=== PATIENT | female | born 1950 | race American Indian/Alaskan Native ===

== ENCOUNTER 2021-01-24 06:18 | Inpatient (IN) | payer MEDICARE ==
[2021-01-24] MEDS ORDERED: DEXTROSE 50% IN WATER (25GM) 50 ML SYRINGE IV ONE (06:53)
--- NOTE | 2021-01-24 07:05 | XRay Report ---
XR chest 1V ap INDICATION / CLINICAL INFORMATION: ams, hypoglycemia. COMPARISON: None available. FINDINGS: SUPPORT DEVICES: None. HEART /PULMONARY VASCULATURE: No significant abnormality. LUNGS / PLEURA: There are patchy bilateral interstitial airspace opacities. No sizable pleural effusi on. No pneumothorax. ADDITIONAL FINDINGS: No significant additional findings. IMPRESSION: 1. Patchy bilateral airspace opacities, suspicious for multifocal pneumonia. Signer Name: Burton Galloway MD Signed: 01/24/2021 7:00 AM Workstation Name: [email or web address]
[2021-01-24 07:24] LABS: Hematocrit 31.6 % (30.3-42.9); Hemoglobin 10.2 gm/dl (10.1-14.3); Mean Corpuscular HGB Conc 32 % (30-34); Mean Corpuscular Volume 92 fl (79-97); Platelet Count 269 K/mm3 (140-440); Red Blood Count 3.44 M/mm3 (3.65-5.03)
--- NOTE | 2021-01-24 07:30 | Emergency Department Report ---
ED Altered Mental Status HPI - General Stated Complaint: AMS Time Seen by Provider: 01/24/21 06:32 Source: patient, family, EMS Mode of arrival: Stretcher Limitations: Physical Limitation - History of Present Illness Initial Comments: 70-year-old female with history of end-stage renal disease on dialysis, hypertension, dementia, and diabetes presents to the hospital alteration mental status. Patient found to have had hypoglycemia with a blood glucose of 58 upon their arrival. They were unable to obtain IV access and transfer to the hospital. Patient presents altered. Stat IV access obtained upon patient arrival and IV dextrose administered. room air sat 94%. History of present illness clarified after discussing case with patient's daughter. She states that patient lives with her sister. Patient originally went to [facility] Friday, January 20. She was sent there by her dialysis center for increased weakness and decreased mental status. She was fo und to have high glucose and elevated blood pressure. Patient received inpatient dialysis that day. She is also told that she had a left-sided bruised fourth and fifth rib from fall. Patient subsequently discharged on Friday the . Family felt like she was still lethargic, had difficulty walking, with mild slurred speech and therefore took her to [place] upon discharge. When she got to [place] her mental status seemed to be better and therefore she was discharged to have dialysis on Friday. When she went to dialysis there on Friday they apparently had no room and she was told to come back today. Today patient was altered with hypoglycemia and therefore came here to the hospital pt is vaccinated for COVID as per daughter. Daughter also expresses that she feels that her mother requires fdc placement since patient sister cannot assist with her care since her physical and mental status have recently worsened - Related Data Home Medications Medication Instructions Recorded Confirmed Last Taken Gabapentin [Neurontin] 400 mg PO TID 12/29/17 01/02/18 01/01/18 Insulin Aspart (Nf) [NovoLOG 1 unit SUB-Q TID 12/29/17 01/02/18 01/01/18 Flexpen] Insulin Glargine,Hum.rec.anlog 8 units SQ QHS 12/29/17 01/02/18 01/01/18 [Lantus] Linagliptin [Tradjenta] 5 mg PO QDAY 12/29/17 01/02/18 01/01/18 Lisinopril [Zestril] 10 mg PO DAILY 12/29/17 01/02/18 01/02/18 Oxycodone HCl/Acetaminophen 1 each PO Q6HR PRN 12/29/17 01/02/18 01/01/18 [Percocet 10/325 mg] Pravastatin [Pravachol] 40 mg PO QHS 12/29/17 01/02/18 01/01/18 Sevelamer Carbonate [Renvela] 800 mg PO TID 12/29/17 12/29/17 Unknown amLODIPine [Norvasc] 10 mg PO DAILY 12/29/17 01/02/18 01/02/18 atenoloL [Tenormin] 25 mg PO DAILY 12/29/17 01/02/18 01/01/18 Allergies Allergy/AdvReac Type Severity Reaction Status Date / Time Iodinated Contrast Media Allergy Itching Verified 12/29/17 17:31 [Iodinated Contrast- Oral and IV Dye] latex Allergy Itching Verified 12/29/17 17:31 ED Review of Systems ROS: Stated complaint: AMS Other details as noted in HPI Comment: Unobtainable due to pts medical conditions ED Past Medical Hx - Past Medical History Hx Hypertension: Yes (X 5 YRS) Hx Diabetes: Yes Hx Arthritis: Yes Hx Tuberculosis: Yes (POSITIVE SKIN TEST,RECEIVED TX,NEG CXR-20YRS AGO) Hx HIV: No - Social History Smoking Status: Current Every Day Smoker - Medications Home Medications: Home Medications Medication Instructions Recorded Confirmed Last Taken Type Gabapentin [Neurontin] 400 mg PO TID 12/29/17 01/02/18 01/01/18 History Insulin Aspart (Nf) [NovoLOG 1 unit SUB-Q TID 12/29/17 01/02/18 01/01/18 History Flexpen] Insulin Glargine,Hum.rec.anlog 8 units SQ QHS 12/29/17 01/02/18 01/01/18 History [Lantus] Linagliptin [Tradjenta] 5 mg PO QDAY 12/29/17 01/02/18 01/01/18 History Lisinopril [Zestril] 10 mg PO DAILY 12/29/17 01/02/18 01/02/18 History Oxycodone HCl/Acetaminophen 1 each PO Q6HR PRN 12/29/17 01/02/18 01/01/18 History [Percocet 10/325 mg] Pravastatin [Pravachol] 40 mg PO QHS 12/29/17 01/02/18 01/01/18 History Sevelamer Carbonate [Renvela] 800 mg PO TID 12/29/17 12/29/17 Unknown History amLODIPine [Norvasc] 10 mg PO DAILY 12/29/17 01/02/18 01/02/18 History atenoloL [Tenormin] 25 mg PO DAILY 12/29/17 01/02/18 01/01/18 History ED Physical Exam - Other Other exam information: general: Unresponsive Head: Atraumatic Eyes: Pupils equal reactive to light Neck: Normal appearance, no midline tenderness Chest: Clear to auscultation bilaterally CV: Regular rate and rhythm, left upper arm dialysis access with positive thrill. Right upper arm dialysis without Abdomen: Soft, normal bowel sounds, nontender, nondistended, no rebound or guarding Extremity: Normal inspection Neuro: Unresponsive, mild grimace to painful stimuli, no spontaneous movement, does not follow command Psych: Appropriate behavior Skin: No rash ED Course Vital Signs 01/24/21 07:06 Temperature 97.6 F Pulse Rate 62 Respiratory 16 Rate Blood Pressure 130/56 [Right] O2 Sat by Pulse 96 Oximetry - Reevaluation(s) Reevaluation #1: 01/24/21 07:58 pt is currently aox3. Cannot recall the last time she had her insulin or the last time she had dialysis. I instructed nurse to feed patient given presenting symptoms of hypoglycemia - Consultations Consultation #1: 01/24/21 08:11 case d/w Dr Reid who will manage dialysis - Lab Data Result diagrams: 01/24/21 07:01 01/24/21 08:18 Lab Results 01/24/21 01/24/21 01/24/21 Range/Units 07:01 07:01 08:18 WBC 5.9 (4.5-11.0) K/mm3 RBC 3.44 L (3.65-5.03) M/mm3 Hgb 10.2 (10.1-14.3) gm/dl Hct 31.6 (30.3-42.9) % MCV 92 (79-97) fl MCH 30 (28-32) pg MCHC 32 (30-34) % RDW 20.7 H (13.2-15.2) % Plt Count 269 (140-440) K/mm3 D-Dimer (0-234) ng/mlDDU Sodium 133 L (137-145) mmol/L Potassium 4.4 (3.6-5.0) mmol/L Chloride 91.6 L (98-107) mmol/L Carbon Dioxide 20 L (22-30) mmol/L Anion Gap 26 mmol/L BUN 77 H (7-17) mg/dL Creatinine 12.5 H (0.6-1.2) mg/dL Estimated GFR 4 ml/min BUN/Creatinine Ratio 6 % Glucose 212 H (65-100) mg/dL Calcium 8.5 (8.4-10.2) mg/dL Magnesium 2.60 H (1.7-2.3) mg/dL Ferritin (10.0-200.0) ng/mL Total Bilirubin 0.40 (0.1-1.2) mg/dL AST 16 (5-40) units/L ALT 10 (7-56) units/L Alkaline Phosphatase 74 (35-129) units/L Lactate Dehydrogenase (91-180) units/L C-Reactive Protein (0.00-1.30) mg/dL Total Protein 7.2 (6.3-8.2) g/dL Albumin 3.4 L (3.9-5) g/dL Albumin/Globulin Ratio 0.9 % Procalcitonin 3.90 (<0.15) ng/mL 01/24/21 01/24/21 01/24/21 Range/Units 08:18 08:18 08:18 WBC (4.5-11.0) K/mm3 RBC (3.65-5.03) M/mm3 Hgb (10.1-14.3) gm/dl Hct (30.3-42.9) % MCV (79-97) fl MCH (28-32) pg MCHC (30-34) % RDW (13.2-15.2) % Plt Count (140-440) K/mm3 D-Dimer 742.42 H (0-234) ng/mlDDU Sodium (137-145) mmol/L Potassium (3.6-5.0) mmol/L Chloride (98-107) mmol/L Carbon Dioxide (22-30) mmol/L Anion Gap mmol/L BUN (7-17) mg/dL Creatinine (0.6-1.2) mg/dL Estimated GFR ml/min BUN/Creatinine Ratio % Glucose 169 H (65-100) mg/dL Calcium (8.4-10.2) mg/dL Magnesium (1.7-2.3) mg/dL Ferritin 1968.0 H (10.0-200.0) ng/mL Total Bilirubin (0.1-1.2) mg/dL AST (5-40) units/L ALT (7-56) units/L Alkaline Phosphatase (35-129) units/L Lactate Dehydrogenase 326 H (91-180) units/L C-Reactive Protein 17.80 H (0.00-1.30) mg/dL Total Protein (6.3-8.2) g/dL Albumin (3.9-5) g/dL Albumin/Globulin Ratio % Procalcitonin (<0.15) ng/mL - EKG Data -: EKG Interpreted by [facility] EKG shows normal: sinus rhythm, intervals (qtc 519), QRS complexes (qrsd 91), ST-T waves (no stemi) Rate: normal When compared to previous EKG there are: no significant change - Radiology Data Radiology results: report reviewed XR chest 1V ap INDICATION / CLINICAL INFORMATION: ams, hypoglycemia. COMPARISON: None available. FINDINGS: SUPPORT DEVICES: None. HEART /PULMONARY VASCULATURE: No significant abnormality. LUNGS / PLEURA: There are patchy bilateral interstitial airspace opacities. No sizable pleural effusion. No pneumothorax. ADDITIONAL FINDINGS: No significant additional findings. IMPRESSION: 1. Patchy bilateral airspace opacities, suspicious for multifocal pneumonia. - Medical Decision Making 70-year-old female presented with alteration mental status secondary to hypoglycemia. Improved mental status after 1 amp of D50. Patient was supposed to receive dialysis yesterday and which was rescheduled for today. Chest x-ray shows signs of multifocal pneumonia as per radiology read however, this may also represent pulmonary edema given delay in dialysis. Patient covered with hospital-acquired pneumonia antibiotics cefepime and vancomycin. Covid order set ordered. Patient fed food while in the ED. Case discussed with behavioral health rn on-call Dr. Olmos. Patient to be admitted to the hospitalist service for further treatment Critical Care Time: No Critical care attestation.: If time is entered above; I have spent that time in minutes in the direct care of this critically ill patient, excluding procedure time. ED Disposition Clinical Impression: Hypoglycemia, ESRD needing dialysis, Altered mental status, Pneumonia, Dementia, COVID Disposition: 09 ADMITTED INPATIENT Is pt being admited?: Yes Condition: Stable Time of Disposition: 08:29 (hospitalist)
[2021-01-24] MEDS ORDERED: VANCOMYCIN 1,250 MG in SODIUM CHLORIDE 0.9% 500 ML 500 ML IV ONE (07:31)
[2021-01-24] MEDS ORDERED: CEFEPIME/NS 2 GM/100 ML 2 GM/100 ML BAG IV ONE (07:31)
[2021-01-24 07:40] LABS: Albumin 3.4 g/dL (3.9-5); Calcium 8.5 mg/dL (8.4-10.2)
[2021-01-24 07:44] LABS: Red Cell Distribution Width 20.7 % (13.2-15.2)
[2021-01-24] MEDS ORDERED: VANCOMYCIN PHARMACY TO DOSE IV SCH (08:00)
[2021-01-24 09:00] LABS: C-Reactive Protein 17.8 mg/dL (0.00-1.30)
[2021-01-24] MEDS ORDERED: VANCOMYCIN 1,250 MG in SODIUM CHLORIDE 0.9% 250ML 250 ML IV SCH (09:30)
--- NOTE | 2021-01-24 10:08 | Electrocardiograph Report ---
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
[2021-01-24] MEDS ORDERED: ONDANSETRON 4 MG/2 ML INJ IV PRN (11:47)
[2021-01-24] MEDS ORDERED: MORPHINE 4 MG/1 ML INJ IV PRN (11:47)
--- NOTE | 2021-01-24 14:25 | Consultation ---
History of Present Illness - Reason for Consult Consult date: 01/24/21 end stage renal disease - History of Present Illness 70-year-old female with history of end-stage renal disease on dialysis, hypertension, dementia, and diabetes presents to the hospital alteration mental status. Patient found to have had hypoglycemia with a blood glucose of 58 upon their arrival. she was found to have possible pneumonia and was staretd on IV abx. renal consult was requested for HD management Medications and Allergies Allergies Allergy/AdvReac Type Severity Reaction Status Date / Time Iodinated Contrast Media Allergy Itching Verified 12/29/17 17:31 [Iodinated Contrast- Oral and IV Dye] latex Allergy Itching Verified 12/29/17 17:31 Home Medications Medication Instructions Recorded Confirmed Last Taken Type Gabapentin [Neurontin] 400 mg PO TID 12/29/17 01/02/18 01/01/18 History Insulin Aspart (Nf) [NovoLOG 1 unit SUB-Q TID 12/29/17 01/02/18 01/01/18 History Flexpen] Insulin Glargine,Hum.rec.anlog 8 units SQ QHS 12/29/17 01/02/18 01/01/18 History [Lantus] Linagliptin [Tradjenta] 5 mg PO QDAY 12/29/17 01/02/18 01/01/18 History Lisinopril [Zestril] 10 mg PO DAILY 12/29/17 01/02/18 01/02/18 History Oxycodone HCl/Acetaminophen 1 each PO Q6HR PRN 12/29/17 01/02/18 01/01/18 History [Percocet 10/325 mg] Pravastatin [Pravachol] 40 mg PO QHS 12/29/17 01/02/18 01/01/18 History Sevelamer Carbonate [Renvela] 800 mg PO TID 12/29/17 12/29/17 Unknown History amLODIPine [Norvasc] 10 mg PO DAILY 12/29/17 01/02/18 01/02/18 History atenoloL [Tenormin] 25 mg PO DAILY 12/29/17 01/02/18 01/01/18 History Active Meds: Active Medications Acetaminophen (Acetaminophen 325 Mg Tab) 650 mg PO Q4H PRN PRN Reason: Pain MILD(1-3)/Fever >100.5/MARTINEZ Hydrocodone Bitart/Acetaminophen (Hydrocodone/Acetaminophen 5-325 Mg Tab) 2 each PO Q6H PRN PRN Reason: Pain, Moderate (4-6) Heparin Sodium (Porcine) (Heparin 5,000 Unit/1 Ml Vial) 5,000 unit SUB-Q Q8HR JOSH Morphine Sulfate (Morphine 4 Mg/1 Ml Inj) 4 mg IV Q4H PRN PRN Reason: Pain , Severe (7-10) Ondansetron HCl (Ondansetron 4 Mg/2 Ml Inj) 4 mg IV Q8H PRN PRN Reason: Nausea And Vomiting Sodium Chloride (Sodium Chloride 0.9% 10 Ml Flush Syringe) 10 ml IV BID JOSH Sodium Chloride (Sodium Chloride 0.9% 10 Ml Flush Syringe) 10 ml IV PRN PRN PRN Reason: LINE FLUSH Exam - Vital Signs Vital signs: Vital Signs Temp Pulse Resp BP Pulse Ox 97.6 F 62 16 130/56 96 01/24/21 07:06 01/24/21 07:06 01/24/21 07:06 01/24/21 07:06 01/24/21 07:06 Results - Lab Results 01/24/21 07:01 01/24/21 08:18 Most recent lab results Calcium 8.5 mg/dL (8.4-10.2) 01/24/21 07:01 Magnesium 2.60 mg/dL (1.7-2.3) H 01/24/21 07:01 Assessment and Plan Altered mental status Pneumonia ESRD on HD HTN Pt was consented for HD HD today for clearance and volume removal likely will neeed HD again tomorrow will assess dialysis needs daily Strict I&O daily weight renally dose meds
--- NOTE | 2021-01-24 15:17 | History and Physical Report ---
History of Present Illness Date of examination: 01/24/21 Date of admission: 01/24/21 08:30 Chief complaint: Altered mental status History of present illness: The patient is a 70-year-old female with past medical history of ESRD on hemodialysis (TTS), dementia, insulin-dependent diabetes mellitus (type II), and hyperlipidemia who presented to the hospital with altered mentation. The patient admitted to her daughter dropping her off at the ED but could not provide much additional information regarding her symptoms. Chart review revealed that the patient was hypoglycemic with a blood glucose of 58 upon arrival. The patient could not provide additional information regarding possible shortness of breath, coughing, nausea, vomiting, abdominal pain, urinary symptoms, confusion, or weakness. EKG revealed sinus rhythm. Chest x- ray was obtained with possible bilateral opacities concerning for multifocal pneumonia. The patient received 1 dose of cefepime and vancomycin in the ED. Attempts will be made to reach out to the patient's family for additional ba ckground information. Past History Past Medical History: diabetes, dialysis, ESRD, hypertension, hyperlipidemia Past Surgical History: total knee replacement (Left knee) Social history: lives with family (Lives with daughter), full code Family history: no significant family history Medications and Allergies Allergies Allergy/AdvReac Type Severity Reaction Status Date / Time Iodinated Contrast Media Allergy Itching Verified 12/29/17 17:31 [Iodinated Contrast- Oral and IV Dye] latex Allergy Itching Verified 12/29/17 17:31 Home Medications Medication Instructions Recorded Confirmed Last Taken Type Gabapentin [Neurontin] 400 mg PO TID 12/29/17 01/02/18 01/01/18 History Insulin Aspart (Nf) [NovoLOG 1 unit SUB-Q TID 12/29/17 01/02/18 01/01/18 History Flexpen] Insulin Glargine,Hum.rec.anlog 8 units SQ QHS 12/29/17 01/02/18 01/01/18 History [Lantus] Linagliptin [Tradjenta] 5 mg PO QDAY 12/29/17 01/02/18 01/01/18 History Lisinopril [Zestril] 10 mg PO DAILY 12/29/17 01/02/18 01/02/18 History Oxycodone HCl/Acetaminophen 1 each PO Q6HR PRN 12/29/17 01/02/18 01/01/18 History [Percocet 10/325 mg] Pravastatin [Pravachol] 40 mg PO QHS 12/29/17 01/02/18 01/01/18 History Sevelamer Carbonate [Renvela] 800 mg PO TID 12/29/17 12/29/17 Unknown History amLODIPine [Norvasc] 10 mg PO DAILY 12/29/17 01/02/18 01/02/18 History atenoloL [Tenormin] 25 mg PO DAILY 12/29/17 01/02/18 01/01/18 History Active Meds: Active Medications Acetaminophen (Acetaminophen 325 Mg Tab) 650 mg PO Q4H PRN PRN Reason: Pain MILD(1-3)/Fever >100.5/MARTINEZ Hydrocodone Bitart/Acetaminophen (Hydrocodone/Acetaminophen 5-325 Mg Tab) 2 each PO Q6H PRN PRN Reason: Pain, Moderate (4-6) Heparin Sodium (Porcine) (Heparin 5,000 Unit/1 Ml Vial) 5,000 unit SUB-Q Q8HR JOSH Morphine Sulfate (Morphine 4 Mg/1 Ml Inj) 4 mg IV Q4H PRN PRN Reason: Pain , Severe (7-10) Ondansetron HCl (Ondansetron 4 Mg/2 Ml Inj) 4 mg IV Q8H PRN PRN Reason: Nausea And Vomiting Sodium Chloride (Sodium Chloride 0.9% 10 Ml Flush Syringe) 10 ml IV BID JOSH Sodium Chloride (Sodium Chloride 0.9% 10 Ml Flush Syringe) 10 ml IV PRN PRN PRN Reason: LINE FLUSH Review of Systems ROS unobtainable: due to mental status (Could not obtain clear review of systems due to mental status) Exam - Constitutional Vitals: Temp Pulse Resp BP Pulse Ox 97.6 F 62 20 130/56 95 01/24/21 07:06 01/24/21 07:06 01/24/21 14:36 01/24/21 07:06 01/24/21 14:36 General appearance: Present: no acute distress, well-nourished - EENT Eyes: Present: PERRL, EOM intact ENT: hearing intact, clear oral mucosa, dentition normal - Neck Neck: Present: supple, normal ROM - Respiratory Respiratory effort: normal Respiratory: negative: CTA, diminished, rales, rhonchi, wheezing, other - Cardiovascular Rhythm: regular Heart Sounds: Present: S1 & S2 Details: Mild tenderness of the lateral left chest - Extremities Extremities: no ischemia, pulses intact, pulses symmetrical, No edema, normal temperature, normal color Peripheral Pulses: within normal limits - Abdominal General gastrointestinal: Present: soft, non-tender, non-distended, normal bowel sounds - Rectal Rectal Exam: deferred - Integumentary Integumentary: Present: clear, warm, dry - Musculoskeletal Musculoskeletal: strength equal bilaterally - Psychiatric Psychiatric: other (Unable to obtain due to clinical status) - Neurologic Neurologic: other (Unable to obtain due to clinical) - Allied Health Allied health notes reviewed: nursing HEART Score - HEART Score History: Slightly suspicious EKG: Normal Age: > 65 Risk factors: 1-2 risk factors Troponin: 1-3x normal limit HEART Score: 4 - Critical Actions Critical Actions: 4-6 pts:12-16.6% risk of adverse cardiac event. Should be admitted Results - Labs CBC & Chem 7: 01/24/21 07:01 01/24/21 08:18 Labs: Laboratory Last Values WBC 5.9 K/mm3 (4.5-11.0) 01/24/21 07:01 RBC 3.44 M/mm3 (3.65-5.03) L 01/24/21 07:01 Hgb 10.2 gm/dl (10.1-14.3) 01/24/21 07:01 Hct 31.6 % (30.3-42.9) 01/24/21 07:01 MCV 92 fl (79-97) 01/24/21 07:01 MCH 30 pg (28-32) 01/24/21 07:01 MCHC 32 % (30-34) 01/24/21 07:01 RDW 20.7 % (13.2-15.2) H 01/24/21 07:01 Plt Count 269 K/mm3 (140-440) 01/24/21 07:01 D-Dimer 742.42 ng/mlDDU (0-234) H 01/24/21 08:18 Sodium 133 mmol/L (137-145) L 01/24/21 07:01 Potassium 4.4 mmol/L (3.6-5.0) 01/24/21 07:01 Chloride 91.6 mmol/L (98-107) L 01/24/21 07:01 Carbon Dioxide 20 mmol/L (22-30) L 01/24/21 07:01 Anion Gap 26 mmol/L 01/24/21 07:01 BUN 77 mg/dL (7-17) H 01/24/21 07:01 Creatinine 12.5 mg/dL (0.6-1.2) H 01/24/21 07:01 Estimated GFR 4 ml/min 01/24/21 07:01 BUN/Creatinine Ratio 6 % 01/24/21 07:01 Glucose 169 mg/dL (65-100) H 01/24/21 08:18 Calcium 8.5 mg/dL (8.4-10.2) 01/24/21 07:01 Magnesium 2.60 mg/dL (1.7-2.3) H 01/24/21 07:01 Ferritin 1968.0 ng/mL (10.0-200.0) H 01/24/21 08:18 Total Bilirubin 0.40 mg/dL (0.1-1.2) 01/24/21 07:01 AST 16 units/L (5-40) 01/24/21 07:01 ALT 10 units/L (7-56) 01/24/21 07:01 Alkaline Phosphatase 74 units/L (35-129) 01/24/21 07:01 Lactate Dehydrogenase 326 units/L (91-180) H 01/24/21 08:18 C-Reactive Protein 17.80 mg/dL (0.00-1.30) H 01/24/21 08:18 Total Protein 7.2 g/dL (6.3-8.2) 01/24/21 07:01 Albumin 3.4 g/dL (3.9-5) L 01/24/21 07:01 Albumin/Globulin Ratio 0.9 % 01/24/21 07:01 Procalcitonin 3.90 ng/mL (<0.15) 01/24/21 08:18 Coronavirus (PCR) Positive (Negative) A 01/24/21 Unknown Microbiology: Microbiology 01/24/21 08:18 Peripheral/Venous Blood Culture - Preliminary Culture in Progress 01/24/21 08:18 Peripheral/Venous Blood Culture - Preliminary Culture in Progress - Imaging and Cardiology EKG: report reviewed, image reviewed Chest x-ray: report reviewed, image reviewed Assessment and Plan Assessment and plan: #Presumed metabolic encephalopathy -Etiology unknown however differential includes infection, hypoglycemia, worsening dementia, electrolyte derangements, etc. -Blood cultures and urinalysis ordered for evaluation of infection; status post cefepime and vancomycin in ED -We will continue antibiotics while pending infectious work-up -We will contact family in order to gather more information about patient's baseline #COVID-19 pneumonia -Chest x-ray concerning for multifocal pneumonia -Covid PCR positive on 01/24/2021 -Unaware of patient's vaccination status -Initiating isolation protocol per COVID-19 results -D-dimer 742, ferritin 1968, LDH 326, CRP 17; will trend COVID-19 inflammatory markers every 2 to 3 days -Consulting infectious disease; appreciate recs #ESRD -Receives hemodialysis on TTS schedule via left upper extremity fistula -Patient admits to missing last 2 sessions but could not provide clear in formation as to why. She hinted at whether being the issue -Nephrology consulted in ED; appreciate recs -Patient will likely obtain hemodialysis today -We will continue to monitor #Insulin-dependent type 2 diabetes mellitus -Restarted home regimen -Initiating low sliding scale insulin regimen -We will continue to monitor #Hypoglycemia -Unsure of etiology (over administration of insulin versus lack of p.o. intake) -Corrected in the ED -We will continue to monitor #DVT prophylaxis -Initiate subcutaneous heparin 5000 units every 8 hours VTE prophylaxis?: Chemical Plan of care discussed with patient/family: Yes - Patient Problems (1) Acute metabolic encephalopathy Current Visit: Yes Status: Acute (2) ESRD needing dialysis Current Visit: Yes Status: Chronic (3) Hypoglycemia Current Visit: Yes Status: Acute (4) Dementia Current Visit: Yes Status: Chronic Qualifiers: Dementia type: unspecified type Dementia behavioral disturbance: without behavioral disturbance Qualified Code(s): F03.90 - Unspecified dementia without behavioral disturbance
[2021-01-24] MEDS: HEPARIN 5,000 UNIT/1 ML VIAL SUB-Q SCH ×2 (15:51→22:37)
[2021-01-24 16:27] LABS: Hepatitis C Virus Antibody Non-Reactive (NonReactive)
[2021-01-24 16:40] LABS: Hepatitis B Surface Antigen Nonreactive (Negative)
[2021-01-24] MEDS: predniSONE 20 MG TAB PO SCH (17:35)
[2021-01-24 17:41] LABS: Total Cells Counted 100
[2021-01-24 17:44] LABS: Band Neutrophils # (Manual) 0.1 K/mm3
[2021-01-24] MEDS: hydrALAZINE 20 MG/1 ML INJ IV PRN (22:30)
[2021-01-25] MEDS: HEPARIN 5,000 UNIT/1 ML VIAL SUB-Q SCH ×3 (08:07→23:05)
[2021-01-25 08:11] LABS: Hematocrit 31.7 % (30.3-42.9); Hemoglobin 10.4 gm/dl (10.1-14.3); Mean Corpuscular HGB Conc 33 % (30-34); Mean Corpuscular Volume 91 fl (79-97); Platelet Count 281 K/mm3 (140-440); Red Blood Count 3.51 M/mm3 (3.65-5.03)
[2021-01-25 08:17] LABS: Red Cell Distribution Width 20.3 % (13.2-15.2)
[2021-01-25] MEDS: predniSONE 20 MG TAB PO SCH (10:31)
--- NOTE | 2021-01-25 11:48 | Progress Note ---
Assessment and Plan Altered mental status Pneumonia ESRD on HD HTN Pt was consented for HD HD again today for clearance and volume removal likely will neeed HD again tomorrow will assess dialysis needs daily Strict I&O daily weight renally dose meds Subjective Date of service: 01/25/21 Principal diagnosis: ESRD on HD Interval history: tolerated HD yesterday Objective - Vital Signs Vital signs: Vital Signs - 12hr 01/25/21 03:53 Temperature 98.1 F Pulse Rate 71 Respiratory 18 Rate Blood Pressure 164/63 O2 Sat by Pulse 98 Oximetry - Lab 01/25/21 06:16 01/25/21 06:16 Most recent lab results Calcium 9.0 mg/dL (8.4-10.2) 01/25/21 06:16 Phosphorus 8.60 mg/dL (2.5-4.5) H 01/25/21 06:16 Magnesium 2.20 mg/dL (1.7-2.3) 01/25/21 06:16 Medications & Allergies - Medications Allergies/Adverse Reactions: Allergies Iodinated Contrast Media [Iodinated Contrast- Oral and IV Dye] Allergy (Verified 12/29/17 17:31) Itching latex Allergy (Verified 12/29/17 17:31) Itching Home Medications: Home Medications Medication Instructions Recorded Confirmed Last Taken Type Gabapentin [Neurontin] 400 mg PO TID 12/29/17 01/02/18 01/01/18 History Insulin Aspart (Nf) [NovoLOG 1 unit SUB-Q TID 12/29/17 01/02/18 01/01/18 History Flexpen] Insulin Glargine,Hum.rec.anlog 8 units SQ QHS 12/29/17 01/02/18 01/01/18 History [Lantus] Linagliptin [Tradjenta] 5 mg PO QDAY 12/29/17 01/02/18 01/01/18 History Lisinopril [Zestril] 10 mg PO DAILY 12/29/17 01/02/18 01/02/18 History Oxycodone HCl/Acetaminophen 1 each PO Q6HR PRN 12/29/17 01/02/18 01/01/18 History [Percocet 10/325 mg] Pravastatin [Pravachol] 40 mg PO QHS 12/29/17 01/02/18 01/01/18 History Sevelamer Carbonate [Renvela] 800 mg PO TID 12/29/17 12/29/17 Unknown History amLODIPine [Norvasc] 10 mg PO DAILY 12/29/17 01/02/18 01/02/18 History atenoloL [Tenormin] 25 mg PO DAILY 12/29/17 01/02/18 01/01/18 History Active Medications: Generic Name Dose Route Start Last Admin Trade Name Freq PRN Reason Stop Dose Admin Acetaminophen 650 mg 01/24/21 11:47 Acetaminophen 325 Mg Tab PO Q4H PRN Pain MILD(1-3)/Fever >100.5/MARTINEZ Hydrocodone Bitart/Acetaminophen 2 each 01/24/21 11:47 Hydrocodone/Acetaminophen 5-325 Mg Tab PO Q6H PRN Pain, Moderate (4-6) Heparin Sodium (Porcine) 5,000 unit 01/24/21 14:00 01/25/21 08:07 Heparin 5,000 Unit/1 Ml Vial SUB-Q 5,000 unit Q8HR JOSH Administration Hydralazine HCl 10 mg 01/24/21 22:30 01/24/21 22:30 Hydralazine 20 Mg/1 Ml Inj IV 10 mg Q6HR PRN Administration elevated blood pressure Morphine Sulfate 4 mg 01/24/21 11:47 Morphine 4 Mg/1 Ml Inj IV Q4H PRN Pain , Severe (7-10) Ondansetron HCl 4 mg 01/24/21 11:47 Ondansetron 4 Mg/2 Ml Inj IV Q8H PRN Nausea And Vomiting Prednisone 40 mg 01/24/21 16:30 01/25/21 10:31 Prednisone 20 Mg Tab PO 02/02/21 10:30 40 mg QDAY JOSH Administration Sodium Chloride 10 ml 01/24/21 22:00 01/25/21 10:31 Sodium Chloride 0.9% 10 Ml Flush Syringe IV 10 ml BID JOSH Administration Sodium Chloride 10 ml 01/24/21 11:47 Sodium Chloride 0.9% 10 Ml Flush Syringe IV PRN PRN LINE FLUSH
[2021-01-25 13:09] LABS: Total Cells Counted 100
[2021-01-25 13:10] LABS: Anisocytosis 1+; Band Neutrophils # (Manual) 0.3 K/mm3; Platelet Estimate Consistent w Auto
--- NOTE | 2021-01-25 13:52 | Consultation ---
History of Present Illness - Reason for Consult Consult date: 01/25/21 COVID-19 Requesting physician: JEREMIAH CORTES - History of Present Illness The patient is a 70-year-old female with ESRD on HD, dementia, insulin-dependent diabetes, hyperlipidemia admitted with altered mental status. Chest x-ray revealed bilateral opacities concerning for multifocal pneumonia. Was started on empiric antibiotics. COVID-19 PCR is positive, hence infectious diseases was consulted. Labs revealed normal WBC, D-dimer 742, creatinine 7.8, ferritin 1968, CRP 17.8, procalcitonin 3.9 Review of Systems: reviewed in the chart, unable to obtain, minimize risk of transmission Past History Past Medical History: diabetes, dialysis, ESRD, hypertension, hyperlipidemia Past Surgical History: total knee replacement (Left knee) Social history: lives with family (Lives with daughter), full code Family history: no significant family history Medications and Allergies Allergies Allergy/AdvReac Type Severity Reaction Status Date / Time Iodinated Contrast Media Allergy Itching Verified 12/29/17 17:31 [Iodinated Contrast- Oral and IV Dye] latex Allergy Itching Verified 12/29/17 17:31 Home Medications Medication Instructions Recorded Confirmed Last Taken Type Gabapentin [Neurontin] 400 mg PO TID 12/29/17 01/25/21 01/01/18 History Insulin Aspart (Nf) [NovoLOG 1 unit SUB-Q TID 12/29/17 01/25/21 01/01/18 History Flexpen] Insulin Glargine,Hum.rec.anlog 8 units SQ QHS 12/29/17 01/25/21 01/01/18 History [Lantus] Linagliptin [Tradjenta] 5 mg PO QDAY 12/29/17 01/25/21 01/01/18 History Lisinopril [Zestril] 10 mg PO DAILY 12/29/17 01/25/21 01/02/18 History Oxycodone HCl/Acetaminophen 1 each PO Q6HR PRN 12/29/17 01/25/21 01/01/18 History [Percocet 10/325 mg] Pravastatin [Pravachol] 40 mg PO QHS 12/29/17 01/25/21 01/01/18 History Sevelamer Carbonate [Renvela] 800 mg PO TID 12/29/17 01/25/21 Unknown History amLODIPine [Norvasc] 10 mg PO DAILY 12/29/17 01/25/21 01/02/18 History atenoloL [Tenormin] 25 mg PO DAILY 12/29/17 01/25/21 01/01/18 History Active Meds: Active Medications Acetaminophen (Acetaminophen 325 Mg Tab) 650 mg PO Q4H PRN PRN Reason: Pain MILD(1-3)/Fever >100.5/MARTINEZ Hydrocodone Bitart/Acetaminophen (Hydrocodone/Acetaminophen 5-325 Mg Tab) 2 each PO Q6H PRN PRN Reason: Pain, Moderate (4-6) Heparin Sodium (Porcine) (Heparin 5,000 Unit/1 Ml Vial) 5,000 unit SUB-Q Q8HR [facility] Last Admin: 01/25/21 08:07 Dose: 5,000 unit Documented by: Hydralazine HCl (Hydralazine 20 Mg/1 Ml Inj) 10 mg IV Q6HR PRN PRN Reason: elevated blood pressure Last Admin: 01/24/21 22:30 Dose: 10 mg Documented by: Insulin Human Lispro (Insulin Lispro 100 Unit/Ml) 0 unit SUB-Q [facility]; Protocol Morphine Sulfate (Morphine 4 Mg/1 Ml Inj) 4 mg IV Q4H PRN PRN Reason: Pain , Severe (7-10) Ondansetron HCl (Ondansetron 4 Mg/2 Ml Inj) 4 mg IV Q8H PRN PRN Reason: Nausea And Vomiting Prednisone (Prednisone 20 Mg Tab) 40 mg PO QDAY [facility] Stop: 02/02/21 10:30 Last Admin: 01/25/21 10:31 Dose: 40 mg Documented by: Sodium Chloride (Sodium Chloride 0.9% 10 Ml Flush Syringe) 10 ml IV BID [facility] Last Admin: 01/25/21 10:31 Dose: 10 ml Documented by: Sodium Chloride (Sodium Chloride 0.9% 10 Ml Flush Syringe) 10 ml IV PRN PRN PRN Reason: LINE FLUSH Physical Examination - Physical Exam Narrative exam: Physical Exam (reviewed in chart to minimize risk of transmission) Constitutional: deferred Head, Ears, Nose: deferred Eyes: deferred Neck: deferred Oral: deferred Cardiovascular: deferred Respiratory: deferred GI: deferred Musculoskeletal: deferred Skin: deferred Hem/Lymphatic: deferred Psych: deferred Neurological: deferred - Constitutional Vitals: Vital Signs Temp Pulse Resp BP Pulse Ox 98.1 F 70 18 164/66 100 01/25/21 03:53 01/25/21 12:15 01/25/21 03:53 01/25/21 13:10 01/25/21 12:15 Temperature -Last 24 Hours Temperature 98.1 F Temperature 98.5 F Temperature 98.7 F Temperature 98.7 F Temperature 97.6 F Results - Labs CBC & Chem 7: 01/25/21 06:16 01/25/21 06:16 Labs: Abnormal lab results 01/24/21 01/24/21 01/24/21 Range/Units 07:01 22:35 Unknown RBC (3.65-5.03) M/mm3 RDW (13.2-15.2) % Seg Neuts % (Manual) 82.0 H (40.0-70.0) % Lymphocytes % (Manual) 9.0 L (13.4-35.0) % Lymphocytes # (Manual) 0.5 L (1.2-5.4) K/mm3 Chloride (98-107) mmol/L BUN (7-17) mg/dL Creatinine (0.6-1.2) mg/dL Glucose (65-100) mg/dL POC Glucose 193 H (70-105) mg/dL Phosphorus (2.5-4.5) mg/dL Coronavirus (PCR) Positive A (Negative) 01/25/21 01/25/21 01/25/21 Range/Units 06:16 06:16 12:13 RBC 3.51 L (3.65-5.03) M/mm3 RDW 20.3 H (13.2-15.2) % Seg Neuts % (Manual) 83.0 H (40.0-70.0) % Lymphocytes % (Manual) 8.0 L (13.4-35.0) % Lymphocytes # (Manual) 0.4 L (1.2-5.4) K/mm3 Chloride 91.4 L (98-107) mmol/L BUN 39 H (7-17) mg/dL Creatinine 7.8 H (0.6-1.2) mg/dL Glucose 115 H (65-100) mg/dL POC Glucose 209 H (70-105) mg/dL Phosphorus 8.60 H (2.5-4.5) mg/dL Coronavirus (PCR) (Negative) - Imaging and Cardiology Chest x-ray: report reviewed, image reviewed (multifocal pneumonia) Assessment and Plan Cultures: SARS CoV2 PCR: Positive 01/24/2021 blood culture: No growth A/P: 70-year-old female with ESRD on HD, dementia, insulin-dependent diabetes, hyperlipidemia admitted with altered mental status: #Bilateral pneumonia: Secondary to COVID-19. Labs revealed normal WBC, D-dimer 742, creatinine 7.8, ferritin 1968, CRP 17.8, procalcitonin 3.9. Procalcitonin elevation probably from renal failure #Acute hypoxic respiratory failure: on nasal cannula. #ESRD on HD: Renally adjust antibiotics. #Acute encephalopathy: Possibly metabolic Recs: Continue steroids, on prednisone Not a candidate for remdesivir due to renal failure prophylactic anticoagulation based on d-dimer per hospital protocol trend ferritin, d-dimer, CRP every 2-3 days Bill Jiménez MD, FACP [facility] ([facility] O: [phone] F: [phone]
--- NOTE | 2021-01-25 14:34 | Progress Note ---
Assessment and Plan Assessment and plan: #Presumed metabolic encephalopathy -Etiology unknown however differential includes infection, hypoglycemia, worsening dementia, electrolyte derangements, etc. -Blood cultures and urinalysis ordered for evaluation of infection; status post cefepime and vancomycin in ED -We will contact family in order to gather more information about patient's baseline #COVID-19 pneumonia #Acute hypoxic respiratory failure -Currently on 4 to 5 L nasal cannula; wean oxygen as tolerated -Covid PCR positive on 01/24/2021 -Unaware of patient's vaccination status -Initiating isolation protocol per COVID-19 results -D-dimer 742, ferritin 1968, LDH 326, CRP 17; will trend COVID-19 inflammatory markers every 2 to 3 days -Consulting infectious disease; appreciate recs -Continue IV dexamethasone 40 mg daily for total of 10 days; not a candidate for remdesivir given renal function #ESRD -Receives hemodialysis on TTS schedule via left upper extremity fistula -Patient admits to missing last 2 sessions but could not provide clear information as to why. She hinted at whether being the issue -Nephrology consulted in ED; appreciate recs -Status post hemodialysis on 01/24/2021; possible hemodialysis today -We will continue to monitor #Insulin-dependent type 2 diabetes mellitus -Restarted home regimen -Continue low sliding scale insulin regimen -We will continue to monitor #Hypoglycemia -Unsure of etiology (over administration of insulin versus lack of p.o. intake) -Corrected in the ED -We will continue to monitor #DVT prophylaxis -Initiate subcutaneous heparin 5000 units every 8 hours Disposition Plan: Continue medical management - Patient Problems (1) Acute metabolic encephalopathy Current Visit: Yes Status: Acute (2) ESRD needing dialysis Current Visit: Yes Status: Chronic (3) Hypoglycemia Current Visit: Yes Status: Acute (4) Dementia Current Visit: Yes Status: Chronic Qualifiers: Dementia type: unspecified type Dementia behavioral disturbance: without behavioral disturbance Qualified Code(s): F03.90 - Unspecified dementia without behavioral disturbance History Interval history: No acute events overnight Hospitalist Physical - Constitutional Vitals: Temp Pulse Resp BP Pulse Ox 98.1 F 70 18 164/66 100 01/25/21 03:53 01/25/21 12:15 01/25/21 03:53 01/25/21 13:10 01/25/21 12:15 General appearance: Present: no acute distress, well-nourished - EENT Eyes: Present: PERRL, EOM intact ENT: hearing intact, clear oral mucosa, dentition normal - Neck Neck: Present: supple, normal ROM - Respiratory Respiratory effort: normal Respiratory: bilateral: rhonchi - Cardiovascular Rhythm: regular Heart Sounds: Present: S1 & S2 - Extremities Extremities: no ischemia, pulses intact, pulses symmetrical, No edema, normal temperature, normal color Extremity abnormal: other (AV fistula in left upper extremity with palpable thrill) Peripheral Pulses: within normal limits - Abdominal General gastrointestinal: soft, non-tender, non-distended, normal bowel sounds - Integumentary Integumentary: Present: clear, warm, dry - Psychiatric Psychiatric: cooperative - Neurologic Neurologic: other (Altered mentation) - Allied Health Allied health notes reviewed: nursing HEART Score - HEART Score EKG: Normal Age: > 65 Risk factors: 1-2 risk factors Troponin: 1-3x normal limit - Critical Actions Critical Actions: 4-6 pts:12-16.6% risk of adverse cardiac event. Should be admitted Results - Labs CBC & Chem 7: 01/25/21 06:16 01/25/21 06:16 Labs: Laboratory Last Values WBC 5.5 K/mm3 (4.5-11.0) 01/25/21 06:16 RBC 3.51 M/mm3 (3.65-5.03) L 01/25/21 06:16 Hgb 10.4 gm/dl (10.1-14.3) 01/25/21 06:16 Hct 31.7 % (30.3-42.9) 01/25/21 06:16 MCV 91 fl (79-97) 01/25/21 06:16 MCH 30 pg (28-32) 01/25/21 06:16 MCHC 33 % (30-34) 01/25/21 06:16 RDW 20.3 % (13.2-15.2) H 01/25/21 06:16 Plt Count 281 K/mm3 (140-440) 01/25/21 06:16 Add Manual Diff Complete 01/25/21 06:16 Total Counted 100 01/25/21 06:16 Seg Neuts % (Manual) 83.0 % (40.0-70.0) H 01/25/21 06:16 Band Neutrophils % 5.0 % 01/25/21 06:16 Lymphocytes % (Manual) 8.0 % (13.4-35.0) L 01/25/21 06:16 Reactive Lymphs % (Man) 3.0 % 01/25/21 06:16 Monocytes % (Manual) 1.0 % (0.0-7.3) 01/25/21 06:16 Metamyelocytes % 1.0 % 01/24/21 07:01 Nucleated RBC % Not Reportable 01/25/21 06:16 Seg Neutrophils # Man 4.6 K/mm3 (1.8-7.7) 01/25/21 06:16 Band Neutrophils # 0.3 K/mm3 01/25/21 06:16 Lymphocytes # (Manual) 0.4 K/mm3 (1.2-5.4) L 01/25/21 06:16 Abs React Lymphs (Man) 0.2 K/mm3 01/25/21 06:16 Monocytes # (Manual) 0.1 K/mm3 (0.0-0.8) 01/25/21 06:16 Eosinophils # (Manual) 0.0 K/mm3 (0.0-0.4) 01/25/21 06:16 Basophils # (Manual) 0.0 K/mm3 (0.0-0.1) 01/25/21 06:16 Metamyelocytes # 0.0 K/mm3 01/25/21 06:16 Myelocytes # 0.0 K/mm3 01/25/21 06:16 Promyelocytes # 0.0 K/mm3 01/25/21 06:16 Blast Cells # 0.0 K/mm3 01/25/21 06:16 WBC Morphology Not Reportable 01/25/21 06:16 Hypersegmented Neuts Not Reportable 01/25/21 06:16 Hyposegmented Neuts Not Reportable 01/25/21 06:16 Hypogranular Neuts Not Reportable 01/25/21 06:16 Smudge Cells Not Reportable 01/25/21 06:16 Toxic Granulation Not Reportable 01/25/21 06:16 Toxic Vacuolation Not Reportable 01/25/21 06:16 Dohle Bodies Not Reportable 01/25/21 06:16 Pelger-Huet Anomaly Not Reportable 01/25/21 06:16 Nelson Rods Not Reportable 01/25/21 06:16 Platelet Estimate Consistent w auto 01/25/21 06:16 Clumped Platelets Not Reportable 01/25/21 06:16 Plt Clumps, EDTA Not Reportable 01/25/21 06:16 Large Platelets Not Reportable 01/25/21 06:16 Giant Platelets Not Reportable 01/25/21 06:16 Platelet Satelliting Not Reportable 01/25/21 06:16 Plt Morphology Comment Not Reportable 01/25/21 06:16 RBC Morphology Not Reportable 01/25/21 06:16 Dimorphic RBCs Not Reportable 01/25/21 06:16 Polychromasia Not Reportable 01/25/21 06:16 Hypochromasia Not Reportable 01/25/21 06:16 Poikilocytosis Not Reportable 01/25/21 06:16 Anisocytosis 1+ 01/25/21 06:16 Microcytosis Not Reportable 01/25/21 06:16 Macrocytosis Not Reportable 01/25/21 06:16 Spherocytes Not Reportable 01/25/21 06:16 Pappenheimer Bodies Not Reportable 01/25/21 06:16 Sickle Cells Not Reportable 01/25/21 06:16 Target Cells Not Reportable 01/25/21 06:16 Tear Drop Cells Not Reportable 01/25/21 06:16 Ovalocytes Not Reportable 01/25/21 06:16 Helmet Cells Not Reportable 01/25/21 06:16 [place] Bodies Not Reportable 01/25/21 06:16 [place] Rings Not Reportable 01/25/21 06:16 [place] Cells Not Reportable 01/25/21 06:16 Bite Cells Not Reportable 01/25/21 06:16 Crenated Cell Not Reportable 01/25/21 06:16 Elliptocytes Not Reportable 01/25/21 06:16 Acanthocytes (Spur) Not Reportable 01/25/21 06:16 Rouleaux Not Reportable 01/25/21 06:16 Hemoglobin C Crystals Not Reportable 01/25/21 06:16 Schistocytes Not Reportable 01/25/21 06:16 Malaria parasites Not Reportable 01/25/21 06:16 [place] Bodies Not Reportable 01/25/21 06:16 Hem Pathologist Commnt No 01/25/21 06:16 D-Dimer 742.42 ng/mlDDU (0-234) H 01/24/21 08:18 Sodium 138 mmol/L (137-145) 01/25/21 06:16 Potassium 4.0 mmol/L (3.6-5.0) 01/25/21 06:16 Chloride 91.4 mmol/L (98-107) L 01/25/21 06:16 Carbon Dioxide 24 mmol/L (22-30) 01/25/21 06:16 Anion Gap 27 mmol/L 01/25/21 06:16 BUN 39 mg/dL (7-17) H 01/25/21 06:16 Creatinine 7.8 mg/dL (0.6-1.2) H 01/25/21 06:16 Estimated GFR 6 ml/min 01/25/21 06:16 BUN/Creatinine Ratio 5 % 01/25/21 06:16 Glucose 115 mg/dL (65-100) H 01/25/21 06:16 POC Glucose 209 mg/dL (70-105) H 01/25/21 12:13 Calcium 9.0 mg/dL (8.4-10.2) 01/25/21 06:16 Phosphorus 8.60 mg/dL (2.5-4.5) H 01/25/21 06:16 Magnesium 2.20 mg/dL (1.7-2.3) 01/25/21 06:16 Ferritin 1968.0 ng/mL (10.0-200.0) H 01/24/21 08:18 Total Bilirubin 0.40 mg/dL (0.1-1.2) 01/24/21 07:01 AST 16 units/L (5-40) 01/24/21 07:01 ALT 10 units/L (7-56) 01/24/21 07:01 Alkaline Phosphatase 74 units/L (35-129) 01/24/21 07:01 Lactate Dehydrogenase 326 units/L (91-180) H 01/24/21 08:18 C-Reactive Protein 17.80 mg/dL (0.00-1.30) H 01/24/21 08:18 Total Protein 7.2 g/dL (6.3-8.2) 01/24/21 07:01 Albumin 3.4 g/dL (3.9-5) L 01/24/21 07:01 Albumin/Globulin Ratio 0.9 % 01/24/21 07:01 Procalcitonin 3.90 ng/mL (<0.15) 01/24/21 08:18 Coronavirus (PCR) Positive (Negative) A 01/24/21 Unknown Hepatitis A IgM Ab Non-reactive (NonReactive) 01/24/21 09:38 Hep Bs Antigen Nonreactive (Negative) 01/24/21 09:38 Hep B Core IgM Ab Non-reactive (NonReactive) 01/24/21 09:38 Hepatitis C Antibody Non-reactive (NonReactive) 01/24/21 09:38 Microbiology: Microbiology 01/24/21 08:18 Peripheral/Venous Blood Culture - Preliminary NO GROWTH AFTER 24 HOURS 01/24/21 08:18 Peripheral/Venous Blood Culture - Preliminary NO GROWTH AFTER 24 HOURS Active Medications - Current Medications Current Medications: Generic Name Dose Route Start Last Admin Trade Name Freq PRN Reason Stop Dose Admin Acetaminophen 650 mg 01/24/21 11:47 Acetaminophen 325 Mg Tab PO Q4H PRN Pain MILD(1-3)/Fever >100.5/MARTINEZ Hydrocodone Bitart/Acetaminophen 2 each 01/24/21 11:47 Hydrocodone/Acetaminophen 5-325 Mg Tab PO Q6H PRN Pain, Moderate (4-6) Heparin Sodium (Porcine) 5,000 unit 01/24/21 14:00 01/25/21 08:07 Heparin 5,000 Unit/1 Ml Vial SUB-Q 5,000 unit Q8HR JOSH Administration Hydralazine HCl 10 mg 01/24/21 22:30 01/24/21 22:30 Hydralazine 20 Mg/1 Ml Inj IV 10 mg Q6HR PRN Administration elevated blood pressure Insulin Human Lispro 0 unit 01/25/21 16:30 Insulin Lispro 100 Unit/Ml SUB-Q [facility] Protocol Morphine Sulfate 4 mg 01/24/21 11:47 Morphine 4 Mg/1 Ml Inj IV Q4H PRN Pain , Severe (7-10) Ondansetron HCl 4 mg 01/24/21 11:47 Ondansetron 4 Mg/2 Ml Inj IV Q8H PRN Nausea And Vomiting Prednisone 40 mg 01/24/21 16:30 01/25/21 10:31 Prednisone 20 Mg Tab PO 02/02/21 10:30 40 mg QDAY JOSH Administration Sodium Chloride 10 ml 01/24/21 22:00 01/25/21 10:31 Sodium Chloride 0.9% 10 Ml Flush Syringe IV 10 ml BID JOSH Administration Sodium Chloride 10 ml 01/24/21 11:47 Sodium Chloride 0.9% 10 Ml Flush Syringe IV PRN PRN LINE FLUSH
[2021-01-25] MEDS: INSULIN LISPRO 100 UNIT/ML SUB-Q SCH ×2 (17:34→23:04)
[2021-01-25] MEDS: amLODIPine 10 MG TAB PO SCH (23:01)
[2021-01-25] MEDS: PRAVASTATIN 40 MG TAB PO SCH (23:03)
[2021-01-25] MEDS: atenoloL 25 MG TAB PO SCH ×2 (23:03→23:14)
[2021-01-25] MEDS: INSULIN GLARGINE 100 UNITS/ML SUB-Q SCH (23:06)
[2021-01-25] MEDS: SEVELAMER CARBONATE 800 MG TAB PO SCH (23:07)
[2021-01-25] MEDS: LINAGLIPTIN 5 MG TAB PO SCH (23:15)
[2021-01-26] MEDS: HEPARIN 5,000 UNIT/1 ML VIAL SUB-Q SCH (06:10)
--- NOTE | 2021-01-26 06:23 | Progress Note ---
Assessment and Plan Assessment and plan: #Presumed metabolic encephalopathy -Etiology unknown however differential includes infection, hypoglycemia, worsening dementia, electrolyte derangements, etc. -Blood cultures and urinalysis ordered for evaluation of infection; status post cefepime and vancomycin in ED -We will contact family in order to gather more information about patient's baseline #COVID-19 pneumonia #Acute hypoxic respiratory failure -Currently on 4 to 5 L nasal cannula; wean oxygen as tolerated -Covid PCR positive on 01/24/2021 -Unaware of patient's vaccination status -Initiating isolation protocol per COVID-19 results -D-dimer 742, ferritin 1968, LDH 326, CRP 17; will trend COVID-19 inflammatory markers every 2 to 3 days -Consulting infectious disease; appreciate recs -Continue IV dexamethasone 40 mg daily for total of 10 days; not a candidate for remdesivir given renal function #ESRD -Receives hemodialysis on TTS schedule via left upper extremity fistula -Patient admits to missing last 2 sessions but could not provide clear information as to why. She hinted at whether being the issue -Nephrology consulted in ED; appreciate recs -Status post hemodialysis on 01/24/2021 -We will continue to monitor; renally dose medications and avoid nephrotoxic drugs #Insulin-dependent type 2 diabetes mellitus -Continue home regimen -Continue low sliding scale insulin regimen -We will continue to monitor #Hypoglycemia-resolved -Unsure of etiology (over administration of insulin versus lack of p.o. intake) -Corrected in the ED -We will continue to monitor #DVT prophylaxis -Initiate subcutaneous heparin 5000 units every 8 hours Disposition Plan: Continue medical management - Patient Problems (1) Acute metabolic encephalopathy Current Visit: Yes Status: Acute (2) ESRD needing dialysis Current Visit: Yes Status: Chronic (3) Hypoglycemia Current Visit: Yes Status: Acute (4) Dementia Current Visit: Yes Status: Chronic Qualifiers: Dementia type: unspecified type Dementia behavioral disturbance: without behavioral disturbance Qualified Code(s): F03.90 - Unspecified dementia without behavioral disturbance History Interval history: No acute events overnight. Hospitalist Physical - Constitutional Vitals: Temp Pulse Resp BP Pulse Ox 100.2 F H 81 20 168/67 100 01/26/21 05:12 01/26/21 05:12 01/26/21 05:12 01/26/21 05:12 01/26/21 05:12 General appearance: Present: no acute distress, well-nourished - EENT Eyes: Present: PERRL, EOM intact ENT: hearing intact, clear oral mucosa, dentition normal - Neck Neck: Present: supple, normal ROM - Respiratory Respiratory effort: normal Respiratory: bilateral: rhonchi, negative: rales, wheezing - Cardiovascular Rhythm: regular Heart Sounds: Present: S1 & S2 - Extremities Extremities: no ischemia, pulses intact, pulses symmetrical, No edema, normal temperature, normal color Peripheral Pulses: within normal limits - Abdominal General gastrointestinal: soft, non-tender, non-distended, normal bowel sounds - Integumentary Integumentary: Present: clear, warm, dry - Psychiatric Psychiatric: cooperative, other (Altered. Alert and oriented x1) - Neurologic Neurologic: CNII-XII intact, moves all extremities - Allied Health Allied health notes reviewed: nursing HEART Score - HEART Score EKG: Normal Age: > 65 Risk factors: 1-2 risk factors Troponin: 1-3x normal limit - Critical Actions Critical Actions: 4-6 pts:12-16.6% risk of adverse cardiac event. Should be admitted Results - Labs CBC & Chem 7: 01/26/21 07:29 01/26/21 07:29 Labs: Laboratory Last Values WBC 5.5 K/mm3 (4.5-11.0) 01/25/21 06:16 RBC 3.51 M/mm3 (3.65-5.03) L 01/25/21 06:16 Hgb 10.4 gm/dl (10.1-14.3) 01/25/21 06:16 Hct 31.7 % (30.3-42.9) 01/25/21 06:16 MCV 91 fl (79-97) 01/25/21 06:16 MCH 30 pg (28-32) 01/25/21 06:16 MCHC 33 % (30-34) 01/25/21 06:16 RDW 20.3 % (13.2-15.2) H 01/25/21 06:16 Plt Count 281 K/mm3 (140-440) 01/25/21 06:16 Add Manual Diff Complete 01/25/21 06:16 Total Counted 100 01/25/21 06:16 Seg Neuts % (Manual) 83.0 % (40.0-70.0) H 01/25/21 06:16 Band Neutrophils % 5.0 % 01/25/21 06:16 Lymphocytes % (Manual) 8.0 % (13.4-35.0) L 01/25/21 06:16 Reactive Lymphs % (Man) 3.0 % 01/25/21 06:16 Monocytes % (Manual) 1.0 % (0.0-7.3) 01/25/21 06:16 Metamyelocytes % 1.0 % 01/24/21 07:01 Nucleated RBC % Not Reportable 01/25/21 06:16 Seg Neutrophils # Man 4.6 K/mm3 (1.8-7.7) 01/25/21 06:16 Band Neutrophils # 0.3 K/mm3 01/25/21 06:16 Lymphocytes # (Manual) 0.4 K/mm3 (1.2-5.4) L 01/25/21 06:16 Abs React Lymphs (Man) 0.2 K/mm3 01/25/21 06:16 Monocytes # (Manual) 0.1 K/mm3 (0.0-0.8) 01/25/21 06:16 Eosinophils # (Manual) 0.0 K/mm3 (0.0-0.4) 01/25/21 06:16 Basophils # (Manual) 0.0 K/mm3 (0.0-0.1) 01/25/21 06:16 Metamyelocytes # 0.0 K/mm3 01/25/21 06:16 Myelocytes # 0.0 K/mm3 01/25/21 06:16 Promyelocytes # 0.0 K/mm3 01/25/21 06:16 Blast Cells # 0.0 K/mm3 01/25/21 06:16 WBC Morphology Not Reportable 01/25/21 06:16 Hypersegmented Neuts Not Reportable 01/25/21 06:16 Hyposegmented Neuts Not Reportable 01/25/21 06:16 Hypogranular Neuts Not Reportable 01/25/21 06:16 Smudge Cells Not Reportable 01/25/21 06:16 Toxic Granulation Not Reportable 01/25/21 06:16 Toxic Vacuolation Not Reportable 01/25/21 06:16 Dohle Bodies Not Reportable 01/25/21 06:16 Pelger-Huet Anomaly Not Reportable 01/25/21 06:16 [place] Rods Not Reportable 01/25/21 06:16 Platelet Estimate Consistent w auto 01/25/21 06:16 Clumped Platelets Not Reportable 01/25/21 06:16 Plt Clumps, EDTA Not Reportable 01/25/21 06:16 Large Platelets Not Reportable 01/25/21 06:16 Giant Platelets Not Reportable 01/25/21 06:16 Platelet Satelliting Not Reportable 01/25/21 06:16 Plt Morphology Comment Not Reportable 01/25/21 06:16 RBC Morphology Not Reportable 01/25/21 06:16 Dimorphic RBCs Not Reportable 01/25/21 06:16 Polychromasia Not Reportable 01/25/21 06:16 Hypochromasia Not Reportable 01/25/21 06:16 Poikilocytosis Not Reportable 01/25/21 06:16 Anisocytosis 1+ 01/25/21 06:16 Microcytosis Not Reportable 01/25/21 06:16 Macrocytosis Not Reportable 01/25/21 06:16 Spherocytes Not Reportable 01/25/21 06:16 Pappenheimer Bodies Not Reportable 01/25/21 06:16 Sickle Cells Not Reportable 01/25/21 06:16 Target Cells Not Reportable 01/25/21 06:16 Tear Drop Cells Not Reportable 01/25/21 06:16 Ovalocytes Not Reportable 01/25/21 06:16 Helmet Cells Not Reportable 01/25/21 06:16 [place] Bodies Not Reportable 01/25/21 06:16 [place] Rings Not Reportable 01/25/21 06:[address] [place] Cells Not Reportable 01/25/21 06:16 Bite Cells Not Reportable 01/25/21 06:16 Crenated Cell Not Reportable 01/25/21 06:16 Elliptocytes Not Reportable 01/25/21 06:16 Acanthocytes (Spur) Not Reportable 01/25/21 06:16 Rouleaux Not Reportable 01/25/21 06:16 Hemoglobin C Crystals Not Reportable 01/25/21 06:16 Schistocytes Not Reportable 01/25/21 06:16 Malaria parasites Not Reportable 01/25/21 06:16 [place] Bodies Not Reportable 01/25/21 06:16 Hem Pathologist Commnt No 01/25/21 06:16 D-Dimer 742.42 ng/mlDDU (0-234) H 01/24/21 08:18 Sodium 138 mmol/L (137-145) 01/25/21 06:16 Potassium 4.0 mmol/L (3.6-5.0) 01/25/21 06:16 Chloride 91.4 mmol/L (98-107) L 01/25/21 06:16 Carbon Dioxide 24 mmol/L (22-30) 01/25/21 06:16 Anion Gap 27 mmol/L 01/25/21 06:16 BUN 39 mg/dL (7-17) H 01/25/21 06:16 Creatinine 7.8 mg/dL (0.6-1.2) H 01/25/21 06:16 Estimated GFR 6 ml/min 01/25/21 06:16 BUN/Creatinine Ratio 5 % 01/25/21 06:16 Glucose 115 mg/dL (65-100) H 01/25/21 06:16 POC Glucose 338 mg/dL (70-105) H 01/25/21 21:08 Calcium 9.0 mg/dL (8.4-10.2) 01/25/21 06:16 Phosphorus 8.60 mg/dL (2.5-4.5) H 01/25/21 06:16 Magnesium 2.20 mg/dL (1.7-2.3) 01/25/21 06:16 Ferritin 1968.0 ng/mL (10.0-200.0) H 01/24/21 08:18 Total Bilirubin 0.40 mg/dL (0.1-1.2) 01/24/21 07:01 AST 16 units/L (5-40) 01/24/21 07:01 ALT 10 units/L (7-56) 01/24/21 07:01 Alkaline Phosphatase 74 units/L (35-129) 01/24/21 07:01 Lactate Dehydrogenase 326 units/L (91-180) H 01/24/21 08:18 C-Reactive Protein 17.80 mg/dL (0.00-1.30) H 01/24/21 08:18 Total Protein 7.2 g/dL (6.3-8.2) 01/24/21 07:01 Albumin 3.4 g/dL (3.9-5) L 01/24/21 07:01 Albumin/Globulin Ratio 0.9 % 01/24/21 07:01 Procalcitonin 3.90 ng/mL (<0.15) 01/24/21 08:18 Coronavirus (PCR) Positive (Negative) A 01/24/21 Unknown Hepatitis A IgM Ab Non-reactive (NonReactive) 01/24/21 09:38 Hep Bs Antigen Nonreactive (Negative) 01/24/21 09:38 Hep B Core IgM Ab Non-reactive (NonReactive) 01/24/21 09:38 Hepatitis C Antibody Non-reactive (NonReactive) 01/24/21 09:38 Microbiology: Microbiology 01/24/21 08:18 Peripheral/Venous Blood Culture - Preliminary NO GROWTH AFTER 24 HOURS 01/24/21 08:18 Peripheral/Venous Blood Culture - Preliminary NO GROWTH AFTER 24 HOURS [place]/IV: Voiding Method Incontinent Active Medications - Current Medications Current Medications: Generic Name Dose Route Start Last Admin Trade Name Freq PRN Reason Stop Dose Admin Acetaminophen 650 mg 01/24/21 11:47 Acetaminophen 325 Mg Tab PO Q4H PRN Pain MILD(1-3)/Fever >100.5/MARTINEZ Hydrocodone Bitart/Acetaminophen 2 each 01/24/21 11:47 Hydrocodone/Acetaminophen 5-325 Mg Tab PO Q6H PRN Pain, Moderate (4-6) Amlodipine Besylate 10 mg 01/25/21 19:00 01/25/21 23:01 Amlodipine 10 Mg Tab PO 10 mg DAILY JOSH Administration Apixaban 5 mg 01/26/21 10:00 Apixaban 5 Mg Tab PO Q12HR [facility] Protocol Atenolol 25 mg 01/25/21 20:00 01/25/21 23:14 Atenolol 25 Mg Tab PO Not Given DAILY [facility] Dexamethasone 6 mg 01/26/21 10:00 Dexamethasone 4 Mg/Ml Vial IV 02/04/21 10:00 DAILY [facility] Hydralazine HCl 10 mg 01/24/21 22:30 01/24/21 22:30 Hydralazine 20 Mg/1 Ml Inj IV 10 mg Q6HR PRN Administration elevated blood pressure Insulin Glargine 8 units 01/25/21 22:00 01/25/21 23:06 Insulin Glargine 100 Units/Ml SUB-Q 8 units QHS JOSH Administration Insulin Human Lispro 0 unit 01/25/21 16:30 01/25/21 23:04 Insulin Lispro 100 Unit/Ml SUB-Q 6 unit ACHS JOSH Administration Protocol Linagliptin 5 mg 01/25/21 20:00 01/25/21 23:15 Linagliptin 5 Mg Tab PO 5 mg QDAY JOSH Administration Lisinopril 10 mg 01/26/21 10:00 Lisinopril 10 Mg Tab PO DAILY JOSH Morphine Sulfate 4 mg 01/24/21 11:47 Morphine 4 Mg/1 Ml Inj IV Q4H PRN Pain , Severe (7-10) Ondansetron HCl 4 mg 01/24/21 11:47 Ondansetron 4 Mg/2 Ml Inj IV Q8H PRN Nausea And Vomiting Pravastatin Sodium 40 mg 01/25/21 22:00 01/25/21 23:03 Pravastatin 40 Mg Tab PO 40 mg QHS JOSH Administration Sevelamer Carbonate 800 mg 01/25/21 20:00 01/25/21 23:07 Sevelamer Carbonate 800 Mg Tab PO 800 mg TIDWM JOSH Administration Sodium Chloride 10 ml 01/24/21 22:00 01/25/21 23:15 Sodium Chloride 0.9% 10 Ml Flush Syringe IV 10 ml BID JOSH Administration Sodium Chloride 10 ml 01/24/21 11:47 Sodium Chloride 0.9% 10 Ml Flush Syringe IV PRN PRN LINE FLUSH
[2021-01-26] MEDS: ACETAMINOPHEN 325 MG TAB PO PRN (06:24)
[2021-01-26] MEDS: hydrALAZINE 20 MG/1 ML INJ IV PRN (06:25)
[2021-01-26 07:37] LABS: Hematocrit 27.9 % (30.3-42.9); Hemoglobin 9.7 gm/dl (10.1-14.3); Mean Corpuscular HGB Conc 35 % (30-34); Mean Corpuscular Volume 89 fl (79-97); Platelet Count 325 K/mm3 (140-440); Red Blood Count 3.13 M/mm3 (3.65-5.03)
[2021-01-26 07:50] LABS: INR 1.03 (0.87-1.13)
[2021-01-26 07:55] LABS: Partial Thromboplastin Time 68.9 Sec. (24.2-36.6); Red Cell Distribution Width 20.5 % (13.2-15.2)
[2021-01-26 08:00] LABS: C-Reactive Protein 26.6 mg/dL (0.00-1.30); Calcium 9.7 mg/dL (8.4-10.2)
[2021-01-26] MEDS: INSULIN LISPRO 100 UNIT/ML SUB-Q SCH ×4 (10:23→21:55)
[2021-01-26] MEDS: SEVELAMER CARBONATE 800 MG TAB PO SCH ×3 (10:33→18:07)
--- NOTE | 2021-01-26 11:03 | Progress Note ---
Assessment and Plan Altered mental status Pneumonia ESRD on HD HTN No indication for HD today will assess dialysis needs daily Strict I&O daily weight renally dose meds Subjective Date of service: 01/26/21 Principal diagnosis: ESRD on HD Interval history: no acute distress Objective - Vital Signs Vital signs: Vital Signs - 12hr 01/26/21 01/26/21 05:12 06:25 Temperature 100.2 F H Pulse Rate 81 81 Respiratory 20 Rate Blood Pressure 168/67 168/67 O2 Sat by Pulse 100 Oximetry - Lab 01/26/21 07:29 01/26/21 07:29 Most recent lab results Calcium 9.7 mg/dL (8.4-10.2) 01/26/21 07:29 Phosphorus 5.40 mg/dL (2.5-4.5) H D 01/26/21 07:29 Magnesium 2.10 mg/dL (1.7-2.3) 01/26/21 07:29 Medications & Allergies - Medications Allergies/Adverse Reactions: Allergies Iodinated Contrast Media [Iodinated Contrast- Oral and IV Dye] Allergy (Verified 12/29/17 17:31) Itching latex Allergy (Verified 12/29/17 17:31) Itching Home Medications: Home Medications Medication Instructions Recorded Confirmed Last Taken Type Gabapentin [Neurontin] 400 mg PO TID 12/29/17 01/25/21 01/01/18 History Insulin Aspart (Nf) [NovoLOG 1 unit SUB-Q TID 12/29/17 01/25/21 01/01/18 History Flexpen] Insulin Glargine,Hum.rec.anlog 8 units SQ QHS 12/29/17 01/25/21 01/01/18 History [Lantus] Linagliptin [Tradjenta] 5 mg PO QDAY 12/29/17 01/25/21 01/01/18 History Lisinopril [Zestril] 10 mg PO DAILY 12/29/17 01/25/21 01/02/18 History Oxycodone HCl/Acetaminophen 1 each PO Q6HR PRN 12/29/17 01/25/21 01/01/18 History [Percocet 10/325 mg] Pravastatin [Pravachol] 40 mg PO QHS 12/29/17 01/25/21 01/01/18 History Sevelamer Carbonate [Renvela] 800 mg PO TID 12/29/17 01/25/21 Unknown History amLODIPine [Norvasc] 10 mg PO DAILY 12/29/17 01/25/21 01/02/18 History atenoloL [Tenormin] 25 mg PO DAILY 12/29/17 01/25/21 01/01/18 History Active Medications: Generic Name Dose Route Start Last Admin Trade Name Freq PRN Reason Stop Dose Admin Acetaminophen 650 mg 01/24/21 11:47 01/26/21 06:24 Acetaminophen 325 Mg Tab PO 650 mg Q4H PRN Administration Pain MILD(1-3)/Fever >100.5/MARITNEZ Hydrocodone Bitart/Acetaminophen 2 each 01/24/21 11:47 Hydrocodone/Acetaminophen 5-325 Mg Tab PO Q6H PRN Pain, Moderate (4-6) Amlodipine Besylate 10 mg 01/25/21 19:00 01/25/21 23:01 Amlodipine 10 Mg Tab PO 10 mg DAILY JOSH Administration Apixaban 5 mg 01/26/21 10:00 Apixaban 5 Mg Tab PO Q12HR [facility] Protocol Atenolol 25 mg 01/25/21 20:00 01/25/21 23:14 Atenolol 25 Mg Tab PO Not Given DAILY [facility] Dexamethasone 6 mg 01/26/21 10:00 Dexamethasone 4 Mg/Ml Vial IV 02/04/21 10:00 DAILY [facility] Hydralazine HCl 10 mg 01/24/21 22:30 01/26/21 06:25 Hydralazine 20 Mg/1 Ml Inj IV 10 mg Q6HR PRN Administration elevated blood pressure Insulin Glargine 8 units 01/25/21 22:00 01/25/21 23:06 Insulin Glargine 100 Units/Ml SUB-Q 8 units QHS [facility] Administration Insulin Human Lispro 0 unit 01/25/21 16:30 01/26/21 10:23 Insulin Lispro 100 Unit/Ml SUB-Q Not Given [facility] Protocol Linagliptin 5 mg 01/25/21 20:00 01/25/21 23:15 Linagliptin 5 Mg Tab PO 5 mg QDAY JOSH Administration Lisinopril 10 mg 01/26/21 10:00 Lisinopril 10 Mg Tab PO DAILY [facility] Morphine Sulfate 4 mg 01/24/21 11:47 Morphine 4 Mg/1 Ml Inj IV Q4H PRN Pain , Severe (7-10) Ondansetron HCl 4 mg 01/24/21 11:47 Ondansetron 4 Mg/2 Ml Inj IV Q8H PRN Nausea And Vomiting Pravastatin Sodium 40 mg 01/25/21 22:00 01/25/21 23:03 Pravastatin 40 Mg Tab PO 40 mg QHS JOSH Administration Sevelamer Carbonate 800 mg 01/25/21 20:00 01/26/21 10:33 Sevelamer Carbonate 800 Mg Tab PO Not Given TIDWM JOSH Sodium Chloride 10 ml 01/24/21 22:00 01/25/21 23:15 Sodium Chloride 0.9% 10 Ml Flush Syringe IV 10 ml BID JOSH Administration Sodium Chloride 10 ml 01/24/21 11:47 Sodium Chloride 0.9% 10 Ml Flush Syringe IV PRN PRN LINE FLUSH
[2021-01-26] MEDS: APIXABAN 5 MG TAB PO SCH ×2 (11:24→21:24)
[2021-01-26] MEDS: dexAMETHasone 4 MG/ML VIAL IV SCH (11:24)
[2021-01-26] MEDS: LINAGLIPTIN 5 MG TAB PO SCH (11:25)
[2021-01-26] MEDS: atenoloL 25 MG TAB PO SCH (11:34)
[2021-01-26] MEDS: LISINOPRIL 10 MG TAB PO SCH (11:34)
[2021-01-26] MEDS: amLODIPine 10 MG TAB PO SCH (11:35)
--- NOTE | 2021-01-26 12:25 | Progress Note ---
Assessment and Plan Cultures: SARS CoV2 PCR: Positive 01/24/2021 blood culture: No growth A/P: 70-year-old female with ESRD on HD, dementia, insulin-dependent diabetes, hyperlipidemia admitted with altered mental status: #Bilateral pneumonia: Secondary to COVID-19. Labs revealed normal WBC, D-dimer 742, creatinine 7.8, ferritin 1968, CRP 17.8, procalcitonin 3.9. Procalcitonin elevation probably from renal failure. Updated labs 01/26/2021 Ferritin 2000, CRP 26.6, D-dimer 1368 #Acute hypoxic respiratory failure: on nasal cannula. #ESRD on HD: Renally adjust antibiotics. #Acute encephalopathy: Possibly metabolic. Recs: Continue steroids x 10 days, on prednisone Not a candidate for remdesivir due to renal failure prophylactic anticoagulation based on d-dimer per hospital protocol trend ferritin, d-dimer, CRP every 2-3 days Bill Jiménez MD, FACP [facility] ([facility] O: [phone] F: [phone] Subjective Date of service: 01/26/21 Principal diagnosis: ESRD on HD Interval history: Low-grade temperature. remains on oxygen. Ferritin 2000, CRP 26.6, D-dimer 1368 Objective - Exam Narrative Exam: Physical Exam (reviewed in chart to minimize risk of transmission) Constitutional: deferred Head, Ears, Nose: deferred Eyes: deferred Neck: deferred Oral: deferred Cardiovascular: deferred Respiratory: deferred GI: deferred Musculoskeletal: deferred Skin: deferred Hem/Lymphatic: deferred Psych: deferred Neurological: deferred - Constitutional Vitals: Vital Signs Temp Pulse Resp BP Pulse Ox 100.2 F H 80 20 156/78 100 01/26/21 05:12 01/26/21 11:34 01/26/21 05:12 01/26/21 11:34 01/26/21 05:12 Temperature -Last 24 Hours Temperature 100.2 F Temperature 97.8 F Temperature 97.8 F Temperature 98.2 F Temperature 98.6 F - Labs CBC & Chem 7: 01/26/21 07:29 01/26/21 07:29 Labs: Abnormal lab results 01/25/21 01/25/21 01/25/21 Range/Units 06:16 17:11 21:08 RBC (3.65-5.03) M/mm3 Hgb (10.1-14.3) gm/dl Hct (30.3-42.9) % MCHC (30-34) % RDW (13.2-15.2) % Seg Neuts % (Manual) 83.0 H (40.0-70.0) % Lymphocytes % (Manual) 8.0 L (13.4-35.0) % Lymphocytes # (Manual) 0.4 L (1.2-5.4) K/mm3 APTT (24.2-36.6) Sec. D-Dimer (0-234) ng/mlDDU Chloride (98-107) mmol/L BUN (7-17) mg/dL Creatinine (0.6-1.2) mg/dL Glucose (65-100) mg/dL POC Glucose 477 H 338 H (70-105) mg/dL Phosphorus (2.5-4.5) mg/dL Ferritin (10.0-200.0) ng/mL Lactate Dehydrogenase (91-180) units/L C-Reactive Protein (0.00-1.30) mg/dL 01/26/21 01/26/21 01/26/21 Range/Units 07:29 07:29 07:29 RBC (3.65-5.03) M/mm3 Hgb (10.1-14.3) gm/dl Hct (30.3-42.9) % MCHC (30-34) % RDW (13.2-15.2) % Seg Neuts % (Manual) (40.0-70.0) % Lymphocytes % (Manual) (13.4-35.0) % Lymphocytes # (Manual) (1.2-5.4) K/mm3 APTT (24.2-36.6) Sec. D-Dimer 1368.50 H (0-234) ng/mlDDU Chloride 94.5 L (98-107) mmol/L BUN 34 H (7-17) mg/dL Creatinine 6.0 H (0.6-1.2) mg/dL Glucose 105 H (65-100) mg/dL POC Glucose (70-105) mg/dL Phosphorus 5.40 H D (2.5-4.5) mg/dL Ferritin 2000.0 H (10.0-200.0) ng/mL Lactate Dehydrogenase 233 H (91-180) units/L C-Reactive Protein 26.60 H (0.00-1.30) mg/dL 01/26/21 01/26/21 01/26/21 Range/Units 07:29 07:29 12:04 RBC 3.13 L (3.65-5.03) M/mm3 Hgb 9.7 L (10.1-14.3) gm/dl Hct 27.9 L (30.3-42.9) % MCHC 35 H (30-34) % RDW 20.5 H (13.2-15.2) % Seg Neuts % (Manual) (40.0-70.0) % Lymphocytes % (Manual) (13.4-35.0) % Lymphocytes # (Manual) (1.2-5.4) K/mm3 APTT 68.9 H* (24.2-36.6) Sec. D-Dimer (0-234) ng/mlDDU Chloride (98-107) mmol/L BUN (7-17) mg/dL Creatinine (0.6-1.2) mg/dL Glucose (65-100) mg/dL POC Glucose 189 H (70-105) mg/dL Phosphorus (2.5-4.5) mg/dL Ferritin (10.0-200.0) ng/mL Lactate Dehydrogenase (91-180) units/L C-Reactive Protein (0.00-1.30) mg/dL
[2021-01-26 20:02] LABS: Band Neutrophils # (Manual) 0.9 K/mm3; Myelocytes # (Manual) 0.9 K/mm3; Total Cells Counted 100
[2021-01-26 20:03] LABS: Platelet Estimate Consistent w Auto
[2021-01-26] MEDS: INSULIN GLARGINE 100 UNITS/ML SUB-Q SCH (21:25)
[2021-01-26] MEDS: PRAVASTATIN 40 MG TAB PO SCH (21:25)
[2021-01-27] MEDS ORDERED: DEXTROSE 50% IN WATER (25GM) 50 ML SYRINGE IV PRN (07:06)
[2021-01-27] MEDS: INSULIN REGULAR, HUMAN 100 UNITS/1 ML SUB-Q SCH ×3 (07:30→16:30)
[2021-01-27] MEDS: SEVELAMER CARBONATE 800 MG TAB PO SCH ×3 (08:00→17:00)
[2021-01-27] MEDS: INSULIN NPH, HUMAN 100 UNIT/1 ML SUB-Q SCH ×2 (08:00→18:08)
[2021-01-27] MEDS ORDERED: INSULIN GLARGINE 100 UNITS/ML SUB-Q SCH (08:00)
[2021-01-27] MEDS: amLODIPine 10 MG TAB PO SCH (09:13)
[2021-01-27] MEDS: dexAMETHasone 4 MG/ML VIAL IV SCH (09:13)
[2021-01-27] MEDS: atenoloL 25 MG TAB PO SCH (09:14)
[2021-01-27] MEDS: LISINOPRIL 10 MG TAB PO SCH (09:14)
[2021-01-27] MEDS: APIXABAN 5 MG TAB PO SCH ×2 (09:14→22:37)
[2021-01-27] MEDS: LINAGLIPTIN 5 MG TAB PO SCH (09:16)
--- NOTE | 2021-01-27 11:11 | Progress Note ---
Assessment and Plan Altered mental status Pneumonia ESRD on HD HTN HD today will assess dialysis needs daily Strict I&O daily weight renally dose meds Subjective Date of service: 01/27/21 Principal diagnosis: ESRD on HD Interval history: HD today. NAD. Objective - Exam Narrative Exam: General appearance: Present: no acute distress, well-nourished - EENT Eyes: Present: PERRL, EOM intact ENT: hearing intact, clear oral mucosa, dentition normal - Neck Neck: Present: supple, normal ROM - Respiratory Respiratory effort: normal Respiratory: bilateral: rhonchi, negative: rales, wheezing - Cardiovascular Rhythm: regular Heart Sounds: Present: S1 & S2 - Extremities Extremities: no ischemia, pulses intact, pulses symmetrical, No edema, normal temperature, normal color Peripheral Pulses: within normal limits - Abdominal General gastrointestinal: soft, non-tender, non-distended, normal bowel sounds - Integumentary Integumentary: Present: clear, warm, dry - Psychiatric Psychiatric: cooperative, other (Altered. Alert and oriented x1) - Neurologic Neurologic: CNII-XII intact, moves all extremities - Allied Health Allied health notes reviewed: nursing - Vital Signs Vital signs: Vital Signs - 12hr 01/26/21 01/27/21 23:29 04:36 Temperature 98.6 F 98.3 F Pulse Rate 69 75 Respiratory 20 20 Rate Blood Pressure 152/63 163/64 O2 Sat by Pulse 100 100 Oximetry - Lab 01/26/21 07:29 01/27/21 11:37 Most recent lab results Calcium 9.7 mg/dL (8.4-10.2) 01/26/21 07:29 Phosphorus 5.40 mg/dL (2.5-4.5) H D 01/26/21 07:29 Magnesium 2.10 mg/dL (1.7-2.3) 01/26/21 07:29 Medications & Allergies - Medications Allergies/Adverse Reactions: Allergies Iodinated Contrast Media [Iodinated Contrast- Oral and IV Dye] Allergy (Verified 12/29/17 17:31) Itching latex Allergy (Verified 12/29/17 17:31) Itching Home Medications: Home Medications Medication Instructions Recorded Confirmed Last Taken Type Gabapentin [Neurontin] 400 mg PO TID 12/29/17 01/25/21 01/01/18 History Insulin Aspart (Nf) [NovoLOG 1 unit SUB-Q TID 12/29/17 01/25/21 01/01/18 History Flexpen] Insulin Glargine,Hum.rec.anlog 8 units SQ QHS 12/29/17 01/25/21 01/01/18 History [Lantus] Linagliptin [Tradjenta] 5 mg PO QDAY 12/29/17 01/25/21 01/01/18 History Lisinopril [Zestril] 10 mg PO DAILY 12/29/17 01/25/21 01/02/18 History Oxycodone HCl/Acetaminophen 1 each PO Q6HR PRN 12/29/17 01/25/21 01/01/18 History [Percocet 10/325 mg] Pravastatin [Pravachol] 40 mg PO QHS 12/29/17 01/25/21 01/01/18 History Sevelamer Carbonate [Renvela] 800 mg PO TID 12/29/17 01/25/21 Unknown History amLODIPine [Norvasc] 10 mg PO DAILY 12/29/17 01/25/21 01/02/18 History atenoloL [Tenormin] 25 mg PO DAILY 12/29/17 01/25/21 01/01/18 History Active Medications: Generic Name Dose Route Start Last Admin Trade Name Freq PRN Reason Stop Dose Admin Acetaminophen 650 mg 01/24/21 11:47 01/26/21 06:24 Acetaminophen 325 Mg Tab PO 650 mg Q4H PRN Administration Pain MILD(1-3)/Fever >100.5/MARTINEZ Hydrocodone Bitart/Acetaminophen 2 each 01/24/21 11:47 Hydrocodone/Acetaminophen 5-325 Mg Tab PO Q6H PRN Pain, Moderate (4-6) Amlodipine Besylate 10 mg 01/25/21 19:00 01/27/21 09:13 Amlodipine 10 Mg Tab PO 10 mg DAILY JOSH Administration Apixaban 5 mg 01/26/21 10:00 01/27/21 09:14 Apixaban 5 Mg Tab PO 5 mg Q12HR JOSH Administration Protocol Atenolol 25 mg 01/25/21 20:00 01/27/21 09:14 Atenolol 25 Mg Tab PO 25 mg DAILY JOSH Administration Dexamethasone 6 mg 01/26/21 10:00 01/27/21 09:13 Dexamethasone 4 Mg/Ml Vial IV 10/03/21 10:00 6 mg DAILY JOSH Administration Dextrose 50 ml 01/27/21 07:06 Dextrose 50% In Water (25gm) 50 Ml Syringe IV Q30MIN PRN Hypoglycemia Protocol Hydralazine HCl 10 mg 01/24/21 22:30 01/26/21 06:25 Hydralazine 20 Mg/1 Ml Inj IV 10 mg Q6HR PRN Administration elevated blood pressure Insulin Human NPH 10 unit 01/27/21 08:00 01/27/21 08:00 Insulin Nph, Human 100 Unit/1 Ml SUB-Q 10 unit BIDDIAB JOSH Administration Insulin Human Regular 0 units 01/27/21 07:30 01/27/21 07:30 Insulin Regular, Human 100 Units/1 Ml SUB-Q 3 units AC JOSH Administration Protocol Linagliptin 5 mg 01/25/21 20:00 01/27/21 09:16 Linagliptin 5 Mg Tab PO 5 mg QDAY JOSH Administration Lisinopril 10 mg 01/26/21 10:00 01/27/21 09:14 Lisinopril 10 Mg Tab PO 10 mg DAILY JOSH Administration Morphine Sulfate 4 mg 01/24/21 11:47 Morphine 4 Mg/1 Ml Inj IV Q4H PRN Pain , Severe (7-10) Ondansetron HCl 4 mg 01/24/21 11:47 Ondansetron 4 Mg/2 Ml Inj IV Q8H PRN Nausea And Vomiting Pravastatin Sodium 40 mg 01/25/21 22:00 01/26/21 21:25 Pravastatin 40 Mg Tab PO 40 mg QHS JOSH Administration Sevelamer Carbonate 800 mg 01/25/21 20:00 01/27/21 08:00 Sevelamer Carbonate 800 Mg Tab PO 800 mg TIDWM JOSH Administration Sodium Chloride 10 ml 01/24/21 22:00 01/27/21 09:12 Sodium Chloride 0.9% 10 Ml Flush Syringe IV 10 ml BID JOSH Administration Sodium Chloride 10 ml 01/24/21 11:47 Sodium Chloride 0.9% 10 Ml Flush Syringe IV PRN PRN LINE FLUSH
[2021-01-27 12:38] LABS: Calcium 9.4 mg/dL (8.4-10.2)
--- NOTE | 2021-01-27 13:25 | Progress Note ---
Assessment and Plan Assessment and plan: #Presumed metabolic encephalopathy #Possible chronic treatment -Etiology unknown however differential includes infection, hypoglycemia, worsening dementia, electrolyte derangements, etc. -Blood cultures and urinalysis ordered for evaluation of infection; status post cefepime and vancomycin in ED -We will contact family in order to gather more information about patient's baseline #COVID-19 pneumonia #Acute hypoxic respiratory failure -Currently on 4 to 5 L nasal cannula; wean oxygen as tolerated -Covid PCR positive on 01/24/2021 -Unaware of patient's vaccination status -Continue solation protocol per COVID-19 results -D-dimer 742, ferritin 1968, LDH 326, CRP 17; will trend COVID-19 inflammatory markers every 2 to 3 days -Consulting infectious disease; appreciate recs -Continue IV dexamethasone 40 mg daily for total of 10 days; not a candidate for remdesivir given renal function #Hyponatremia -Na 132 -We will continue to monitor; consider obtaining urine electrolytes if sodium continues to drop #ESRD -Receives hemodialysis on TTS schedule via left upper extremity fistula -Patient admits to missing last 2 sessions but could not provide clear information as to why. She hinted at whether being the issue -Nephrology consulted in ED; appreciate recs -Status post hemodialysis on 01/24/2021 -We will continue to monitor; renally dose medications and avoid nephrotoxic drugs #Insulin-dependent type 2 diabetes mellitus -Adjusted insulin regimen to NPH 10 units twice daily with moderate SSI due to worsening hyperglycemia. Blood sugar goal of 140-180 -Worsening hyperglycemia likely secondary to steroid administration -If blood sugars remain uncontrolled we will increase NPH to 15 units twice daily with moderate SSI -We will continue to monitor #Hypoglycemia-resolved -Unsure of etiology (over administration of insulin versus lack of p.o. intake) -Corrected in the ED -We will continue to monitor #DVT prophylaxis -Transitioned to Eliquis 2.5 mg twice daily due to D-dimer being >3 in the setting of Covid Disposition Plan: Continue medical management - Patient Problems (1) Acute metabolic encephalopathy Current Visit: Yes Status: Acute (2) ESRD needing dialysis Current Visit: Yes Status: Chronic (3) Hypoglycemia Current Visit: Yes Status: Acute (4) Dementia Current Visit: Yes Status: Chronic Qualifiers: Dementia type: unspecified type Dementia behavioral disturbance: without behavioral disturbance Qualified Code(s): F03.90 - Unspecified dementia without behavioral disturbance History Interval history: No acute events overnight. Hospitalist Physical - Constitutional Vitals: Temp Pulse Resp BP Pulse Ox 98.6 F 81 18 141/66 99 01/27/21 11:12 01/27/21 11:12 01/27/21 11:12 01/27/21 11:12 01/27/21 11:12 General appearance: Present: no acute distress, well-nourished - EENT Eyes: Present: PERRL, EOM intact ENT: hearing intact, clear oral mucosa, dentition normal - Neck Neck: Present: supple, normal ROM - Respiratory Respiratory effort: normal Respiratory: negative: CTA, diminished, rales, rhonchi, wheezing, other - Cardiovascular Rhythm: regular Heart Sounds: Present: S1 & S2 - Extremities Extremities: no ischemia, pulses intact, pulses symmetrical, No edema, normal temperature, normal color, abnormal (AV fistula in left upper extremity with palpable thrill) Peripheral Pulses: within normal limits - Abdominal General gastrointestinal: soft, non-tender, non-distended, normal bowel sounds - Integumentary Integumentary: Present: clear, warm, dry - Psychiatric Psychiatric: cooperative, other (Altered mentation) - Neurologic Neurologic: CNII-XII intact, moves all extremities, other (ANO x1) - Allied Health Allied health notes reviewed: nursing HEART Score - HEART Score EKG: Normal Age: > 65 Risk factors: 1-2 risk factors Troponin: 1-3x normal limit - Critical Actions Critical Actions: 4-6 pts:12-16.6% risk of adverse cardiac event. Should be admitted Results - Labs CBC & Chem 7: 01/26/21 07:29 01/27/21 11:37 Labs: Laboratory Last Values WBC 9.6 K/mm3 (4.5-11.0) 01/26/21 07:29 RBC 3.13 M/mm3 (3.65-5.03) L 01/26/21 07:29 Hgb 9.7 gm/dl (10.1-14.3) L 01/26/21 07:29 Hct 27.9 % (30.3-42.9) L 01/26/21 07:29 MCV 89 fl (79-97) 01/26/21 07:29 MCH 31 pg (28-32) 01/26/21 07:29 MCHC 35 % (30-34) H 01/26/21 07:29 RDW 20.5 % (13.2-15.2) H 01/26/21 07:29 Plt Count 325 K/mm3 (140-440) 01/26/21 07:29 Add Manual Diff Complete 01/26/21 07:29 Total Counted 100 01/26/21 07:29 Seg Neuts % (Manual) 73.0 % (40.0-70.0) H 01/26/21 07:29 Band Neutrophils % 9.0 % 01/26/21 07:29 Lymphocytes % (Manual) 6.0 % (13.4-35.0) L 01/26/21 07:29 Reactive Lymphs % (Man) 3.0 % 01/25/21 06:16 Monocytes % (Manual) 3.0 % (0.0-7.3) 01/26/21 07:29 Metamyelocytes % 1.0 % 01/24/21 07:01 Myelocytes % 9.0 % 01/26/21 07:29 Nucleated RBC % Not Reportable 01/26/21 07:29 Seg Neutrophils # Man 7.0 K/mm3 (1.8-7.7) 01/26/21 07:29 Band Neutrophils # 0.9 K/mm3 01/26/21 07:29 Lymphocytes # (Manual) 0.6 K/mm3 (1.2-5.4) L 01/26/21 07:29 Abs React Lymphs (Man) 0.0 K/mm3 01/26/21 07:29 Monocytes # (Manual) 0.3 K/mm3 (0.0-0.8) 01/26/21 07:29 Eosinophils # (Manual) 0.0 K/mm3 (0.0-0.4) 01/26/21 07:29 Basophils # (Manual) 0.0 K/mm3 (0.0-0.1) 01/26/21 07:29 Metamyelocytes # 0.0 K/mm3 01/26/21 07:29 Myelocytes # 0.9 K/mm3 01/26/21 07:29 Promyelocytes # 0.0 K/mm3 01/26/21 07:29 Blast Cells # 0.0 K/mm3 01/26/21 07:29 WBC Morphology Not Reportable 01/26/21 07:29 Hypersegmented Neuts Not Reportable 01/26/21 07:29 Hyposegmented Neuts Not Reportable 01/26/21 07:29 Hypogranular Neuts Not Reportable 01/26/21 07:29 Smudge Cells Not Reportable 01/26/21 07:29 Toxic Granulation Not Reportable 01/26/21 07:29 Toxic Vacuolation Not Reportable 01/26/21 07:29 Dohle Bodies Not Reportable 01/26/21 07:29 Pelger-Huet Anomaly Not Reportable 01/26/21 07:29 Nelson Rods Not Reportable 01/26/21 07:29 Platelet Estimate Consistent w auto 01/26/21 07:29 Clumped Platelets Not Reportable 01/26/21 07:29 Plt Clumps, EDTA Not Reportable 01/26/21 07:29 Large Platelets Not Reportable 01/26/21 07:29 Giant Platelets Not Reportable 01/26/21 07:29 Platelet Satelliting Not Reportable 01/26/21 07:29 Plt Morphology Comment Not Reportable 01/26/21 07:29 RBC Morphology Not Reportable 01/26/21 07:29 Dimorphic RBCs Not Reportable 01/26/21 07:29 Polychromasia Not Reportable 01/26/21 07:29 Hypochromasia Not Reportable 01/26/21 07:29 Poikilocytosis Not Reportable 01/26/21 07:29 Anisocytosis Not Reportable 01/26/21 07:29 Microcytosis Not Reportable 01/26/21 07:29 Macrocytosis Not Reportable 01/26/21 07:29 Spherocytes Not Reportable 01/26/21 07:29 Pappenheimer Bodies Not Reportable 01/26/21 07:29 Sickle Cells Not Reportable 01/26/21 07:29 Target Cells Not Reportable 01/26/21 07:29 Tear Drop Cells Not Reportable 01/26/21 07:29 Ovalocytes Not Reportable 01/26/21 07:29 Helmet Cells Not Reportable 01/26/21 07:29 Lees-Erick Bodies Not Reportable 01/26/21 07:29 Ericson Rings Not Reportable 01/26/21 07:29 Grant Cells Not Reportable 01/26/21 07:29 Bite Cells Not Reportable 01/26/21 07:29 Crenated Cell Not Reportable 01/26/21 07:29 Elliptocytes Not Reportable 01/26/21 07:29 Acanthocytes (Spur) Not Reportable 01/26/21 07:29 Rouleaux Not Reportable 01/26/21 07:29 Hemoglobin C Crystals Not Reportable 01/26/21 07:29 Schistocytes Not Reportable 01/26/21 07:29 Malaria parasites Not Reportable 01/26/21 07:29 Troy Bodies Not Reportable 01/26/21 07:29 Hem Pathologist Commnt No 01/26/21 07:29 PT 14.1 Sec. (12.2-14.9) 01/26/21 07:29 INR 1.03 (0.87-1.13) 01/26/21 07:29 APTT 68.9 Sec. (24.2-36.6) H* 01/26/21 07:29 D-Dimer 1368.50 ng/mlDDU (0-234) H 01/26/21 07:29 Sodium 132 mmol/L (137-145) L D 01/27/21 11:37 Potassium 4.9 mmol/L (3.6-5.0) D 01/27/21 11:37 Chloride 87.8 mmol/L (98-107) L 01/27/21 11:37 Carbon Dioxide 24 mmol/L (22-30) 01/27/21 11:37 Anion Gap 25 mmol/L 01/27/21 11:37 BUN 63 mg/dL (7-17) H 01/27/21 11:37 Creatinine 8.4 mg/dL (0.6-1.2) H 01/27/21 11:37 Estimated GFR 6 ml/min 01/27/21 11:37 BUN/Creatinine Ratio 8 % 01/27/21 11:37 Glucose 335 mg/dL (65-100) H 01/27/21 11:37 POC Glucose 318 mg/dL (70-105) H 01/27/21 11:51 Calcium 9.4 mg/dL (8.4-10.2) 01/27/21 11:37 Phosphorus 5.40 mg/dL (2.5-4.5) H D 01/26/21 07:29 Magnesium 2.10 mg/dL (1.7-2.3) 01/26/21 07:29 Ferritin 2000.0 ng/mL (10.0-200.0) H 01/26/21 07:29 Total Bilirubin 0.40 mg/dL (0.1-1.2) 01/24/21 07:01 AST 16 units/L (5-40) 01/24/21 07:01 ALT 10 units/L (7-56) 01/24/21 07:01 Alkaline Phosphatase 74 units/L (35-129) 01/24/21 07:01 Lactate Dehydrogenase 233 units/L (91-180) H 01/26/21 07:29 C-Reactive Protein 26.60 mg/dL (0.00-1.30) H 01/26/21 07:29 Total Protein 7.2 g/dL (6.3-8.2) 01/24/21 07:01 Albumin 3.4 g/dL (3.9-5) L 01/24/21 07:01 Albumin/Globulin Ratio 0.9 % 01/24/21 07:01 Procalcitonin 3.90 ng/mL (<0.15) 01/24/21 08:18 Coronavirus (PCR) Positive (Negative) A 01/24/21 Unknown Hepatitis A IgM Ab Non-reactive (NonReactive) 01/24/21 09:38 Hep Bs Antigen Nonreactive (Negative) 01/24/21 09:38 Hep B Core IgM Ab Non-reactive (NonReactive) 01/24/21 09:38 Hepatitis C Antibody Non-reactive (NonReactive) 01/24/21 09:38 Microbiology: Microbiology 01/24/21 08:18 Peripheral/Venous Blood Culture - Preliminary NO GROWTH AFTER 72 HOURS 01/24/21 08:18 Peripheral/Venous Blood Culture - Preliminary NO GROWTH AFTER 72 HOURS Rosenthal/IV: Voiding Method Incontinent Active Medications - Current Medications Current Medications: Generic Name Dose Route Start Last Admin Trade Name Freq PRN Reason Stop Dose Admin Acetaminophen 650 mg 01/24/21 11:47 01/26/21 06:24 Acetaminophen 325 Mg Tab PO 650 mg Q4H PRN Administration Pain MILD(1-3)/Fever >100.5/MARTINEZ Hydrocodone Bitart/Acetaminophen 2 each 01/24/21 11:47 Hydrocodone/Acetaminophen 5-325 Mg Tab PO Q6H PRN Pain, Moderate (4-6) Amlodipine Besylate 10 mg 01/25/21 19:00 01/27/21 09:13 Amlodipine 10 Mg Tab PO 10 mg DAILY JOSH Administration Apixaban 5 mg 01/26/21 10:00 01/27/21 09:14 Apixaban 5 Mg Tab PO 5 mg Q12HR JOSH Administration Protocol Atenolol 25 mg 01/25/21 20:00 01/27/21 09:14 Atenolol 25 Mg Tab PO 25 mg DAILY JOSH Administration Dexamethasone 6 mg 01/26/21 10:00 01/27/21 09:13 Dexamethasone 4 Mg/Ml Vial IV 02/04/21 10:00 6 mg DAILY JOSH Administration Dextrose 50 ml 01/27/21 07:06 Dextrose 50% In Water (25gm) 50 Ml Syringe IV Q30MIN PRN Hypoglycemia Protocol Hydralazine HCl 10 mg 01/24/21 22:30 01/26/21 06:25 Hydralazine 20 Mg/1 Ml Inj IV 10 mg Q6HR PRN Administration elevated blood pressure Insulin Human NPH 10 unit 01/27/21 08:00 01/27/21 08:00 Insulin Nph, Human 100 Unit/1 Ml SUB-Q 10 unit BIDDIAB JOSH Administration Insulin Human Regular 0 units 01/27/21 07:30 01/27/21 07:30 Insulin Regular, Human 100 Units/1 Ml SUB-Q 3 units AC JOSH Administration Protocol Linagliptin 5 mg 01/25/21 20:00 01/27/21 09:16 Linagliptin 5 Mg Tab PO 5 mg QDAY JOSH Administration Lisinopril 10 mg 01/26/21 10:00 01/27/21 09:14 Lisinopril 10 Mg Tab PO 10 mg DAILY JOSH Administration Morphine Sulfate 4 mg 01/24/21 11:47 Morphine 4 Mg/1 Ml Inj IV Q4H PRN Pain , Severe (7-10) Ondansetron HCl 4 mg 01/24/21 11:47 Ondansetron 4 Mg/2 Ml Inj IV Q8H PRN Nausea And Vomiting Pravastatin Sodium 40 mg 01/25/21 22:00 01/26/21 21:25 Pravastatin 40 Mg Tab PO 40 mg QHS JOSH Administration Sevelamer Carbonate 800 mg 01/25/21 20:00 01/27/21 08:00 Sevelamer Carbonate 800 Mg Tab PO 800 mg TIDWM JOSH Administration Sodium Chloride 10 ml 01/24/21 22:00 01/27/21 09:12 Sodium Chloride 0.9% 10 Ml Flush Syringe IV 10 ml BID JOSH Administration Sodium Chloride 10 ml 01/24/21 11:47 Sodium Chloride 0.9% 10 Ml Flush Syringe IV PRN PRN LINE FLUSH
--- NOTE | 2021-01-27 18:21 | Progress Note ---
Subjective Date of service: 01/27/21 Principal diagnosis: ESRD on HD Interval history: Afebrile, normal white count. On nasal cannula. Objective - Exam Narrative Exam: Cultures: SARS CoV2 PCR: Positive 01/24/2021 blood culture: No growth A/P: 70-year-old female with ESRD on HD, dementia, insulin-dependent diabetes, hyperlipidemia admitted with altered mental status: #Bilateral pneumonia: Secondary to COVID-19. Labs revealed normal WBC, D-dimer 742, creatinine 7.8, ferritin 1968, CRP 17.8, procalcitonin 3.9. Procalcitonin elevation probably from renal failure. Updated labs 01/26/2021 Ferritin 2000, CRP 26.6, D-dimer 1368 #Acute hypoxic respiratory failure: on nasal cannula. #ESRD on HD: Renally adjust antibiotics. #Acute encephalopathy: Possibly metabolic. Recs: Continue steroids x 10 days, on prednisone Not a candidate for remdesivir due to renal failure prophylactic anticoagulation based on d-dimer per hospital protocol trend ferritin, d-dimer, CRP every 2-3 days Av Aviles MD [facility] O: [phone] F: [phone] - Constitutional Vitals: Vital Signs Temp Pulse Resp BP Pulse Ox 98.6 F 68 18 129/57 99 01/27/21 14:30 01/27/21 16:30 01/27/21 14:30 01/27/21 16:30 01/27/21 14:30 Temperature -Last 24 Hours Temperature 98.6 F Temperature 98.6 F Temperature 98.3 F Temperature 98.6 F - Labs CBC & Chem 7: 01/26/21 07:29 01/27/21 11:37 Labs: Abnormal lab results 01/26/21 01/26/21 01/27/21 Range/Units 07:29 20:55 07:37 Seg Neuts % (Manual) 73.0 H (40.0-70.0) % Lymphocytes % (Manual) 6.0 L (13.4-35.0) % Lymphocytes # (Manual) 0.6 L (1.2-5.4) K/mm3 Sodium (137-145) mmol/L Chloride (98-107) mmol/L BUN (7-17) mg/dL Creatinine (0.6-1.2) mg/dL Glucose (65-100) mg/dL POC Glucose 395 H 221 H (70-105) mg/dL 01/27/21 01/27/21 Range/Units 11:37 11:51 Seg Neuts % (Manual) (40.0-70.0) % Lymphocytes % (Manual) (13.4-35.0) % Lymphocytes # (Manual) (1.2-5.4) K/mm3 Sodium 132 L D (137-145) mmol/L Chloride 87.8 L (98-107) mmol/L BUN 63 H (7-17) mg/dL Creatinine 8.4 H (0.6-1.2) mg/dL Glucose 335 H (65-100) mg/dL POC Glucose 318 H (70-105) mg/dL
[2021-01-27] MEDS: PRAVASTATIN 40 MG TAB PO SCH (22:37)
[2021-01-28] MEDS: ACETAMINOPHEN 325 MG TAB PO PRN (05:34)
[2021-01-28] MEDS: HYDROcodone/ACETAMINOPHEN 5-325 MG TAB PO PRN ×2 (05:40→22:14)
[2021-01-28 06:20] LABS: Mean Corpuscular HGB Conc 33 % (30-34); Mean Corpuscular Volume 90 fl (79-97); Platelet Count 375 K/mm3 (140-440); Red Blood Count 2.67 M/mm3 (3.65-5.03)
[2021-01-28 06:21] LABS: Red Cell Distribution Width 20.5 % (13.2-15.2)
[2021-01-28 06:41] LABS: Calcium 9.5 mg/dL (8.4-10.2)
[2021-01-28] MEDS: INSULIN REGULAR, HUMAN 100 UNITS/1 ML SUB-Q SCH ×3 (07:30→16:30)
[2021-01-28] MEDS: SEVELAMER CARBONATE 800 MG TAB PO SCH ×3 (08:00→17:04)
[2021-01-28 08:05] LABS: Total Cells Counted 100
[2021-01-28 08:08] LABS: Platelet Estimate Consistent w Auto
[2021-01-28 08:15] LABS: Band Neutrophils # (Manual) 1.6 K/mm3; Myelocytes # (Manual) 0.3 K/mm3
[2021-01-28] MEDS: INSULIN NPH, HUMAN 100 UNIT/1 ML SUB-Q SCH ×2 (09:27→17:11)
[2021-01-28] MEDS: dexAMETHasone 4 MG/ML VIAL IV SCH (09:27)
[2021-01-28] MEDS: LINAGLIPTIN 5 MG TAB PO SCH (09:28)
[2021-01-28] MEDS: atenoloL 25 MG TAB PO SCH (09:28)
[2021-01-28] MEDS: amLODIPine 10 MG TAB PO SCH (09:28)
[2021-01-28] MEDS: APIXABAN 5 MG TAB PO SCH ×2 (09:28→22:13)
[2021-01-28] MEDS: LISINOPRIL 10 MG TAB PO SCH (09:28)
--- NOTE | 2021-01-28 09:31 | Progress Note ---
Assessment and Plan Altered mental status Pneumonia ESRD on HD HTN s/p HD yesterday, no HD today will assess dialysis needs daily Strict I&O daily weight renally dose meds Subjective Date of service: 01/28/21 Principal diagnosis: ESRD on HD Interval history: Tolerated HD yesterday. NAD. Objective - Exam Narrative Exam: General appearance: Present: no acute distress, well-nourished - EENT Eyes: Present: PERRL, EOM intact ENT: hearing intact, clear oral mucosa, dentition normal - Neck Neck: Present: supple, normal ROM - Respiratory Respiratory effort: normal Respiratory: bilateral: rhonchi, negative: rales, wheezing - Cardiovascular Rhythm: regular Heart Sounds: Present: S1 & S2 - Extremities Extremities: no ischemia, pulses intact, pulses symmetrical, No edema, normal temperature, normal color Peripheral Pulses: within normal limits - Abdominal General gastrointestinal: soft, non-tender, non-distended, normal bowel sounds - Integumentary Integumentary: Present: clear, warm, dry - Psychiatric Psychiatric: cooperative, other (Altered. Alert and oriented x1) - Neurologic Neurologic: CNII-XII intact, moves all extremities - Allied Health Allied health notes reviewed: nursing - Vital Signs Vital signs: Vital Signs - 12hr 01/27/21 01/28/21 22:00 05:01 Temperature 102.3 F H Pulse Rate 85 Respiratory 18 Rate Blood Pressure 156/65 O2 Sat by Pulse 96 99 Oximetry - Lab 01/28/21 04:38 01/28/21 04:38 Most recent lab results Calcium 9.5 mg/dL (8.4-10.2) 01/28/21 04:38 Phosphorus 4.20 mg/dL (2.5-4.5) 01/28/21 04:38 Magnesium 1.80 mg/dL (1.7-2.3) 01/28/21 04:38 Medications & Allergies - Medications Allergies/Adverse Reactions: Allergies Iodinated Contrast Media [Iodinated Contrast- Oral and IV Dye] Allergy (Verified 12/29/17 17:31) Itching latex Allergy (Verified 12/29/17 17:31) Itching Home Medications: Home Medications Medication Instructions Recorded Confirmed Last Taken Type Gabapentin [Neurontin] 400 mg PO TID 12/29/17 01/25/21 01/01/18 History Insulin Aspart (Nf) [NovoLOG 1 unit SUB-Q TID 12/29/17 01/25/21 01/01/18 History Flexpen] Insulin Glargine,Hum.rec.anlog 8 units SQ QHS 12/29/17 01/25/21 01/01/18 History [Lantus] Linagliptin [Tradjenta] 5 mg PO QDAY 12/29/17 01/25/21 01/01/18 History Lisinopril [Zestril] 10 mg PO DAILY 12/29/17 01/25/21 01/02/18 History Oxycodone HCl/Acetaminophen 1 each PO Q6HR PRN 12/29/17 01/25/21 01/01/18 History [Percocet 10/325 mg] Pravastatin [Pravachol] 40 mg PO QHS 12/29/17 01/25/21 01/01/18 History Sevelamer Carbonate [Renvela] 800 mg PO TID 12/29/17 01/25/21 Unknown History amLODIPine [Norvasc] 10 mg PO DAILY 12/29/17 01/25/21 01/02/18 History atenoloL [Tenormin] 25 mg PO DAILY 12/29/17 01/25/21 01/01/18 History Active Medications: Generic Name Dose Route Start Last Admin Trade Name Freq PRN Reason Stop Dose Admin Acetaminophen 650 mg 01/24/21 11:47 01/28/21 05:34 Acetaminophen 325 Mg Tab PO 650 mg Q4H PRN Administration Pain MILD(1-3)/Fever >100.5/MARTINEZ Hydrocodone Bitart/Acetaminophen 2 each 01/24/21 11:47 01/28/21 05:40 Hydrocodone/Acetaminophen 5-325 Mg Tab PO 2 each Q6H PRN Administration Pain, Moderate (4-6) Amlodipine Besylate 10 mg 01/25/21 19:00 01/28/21 09:28 Amlodipine 10 Mg Tab PO 10 mg DAILY JOSH Administration Apixaban 5 mg 01/26/21 10:00 01/28/21 09:28 Apixaban 5 Mg Tab PO 5 mg Q12HR JOSH Administration Protocol Atenolol 25 mg 01/25/21 20:00 01/28/21 09:28 Atenolol 25 Mg Tab PO 25 mg DAILY JOSH Administration Dexamethasone 6 mg 01/26/21 10:00 01/28/21 09:27 Dexamethasone 4 Mg/Ml Vial IV 02/04/21 10:00 6 mg DAILY JOSH Administration Dextrose 50 ml 01/27/21 07:06 Dextrose 50% In Water (25gm) 50 Ml Syringe IV Q30MIN PRN Hypoglycemia Protocol Hydralazine HCl 10 mg 01/24/21 22:30 01/26/21 06:25 Hydralazine 20 Mg/1 Ml Inj IV 10 mg Q6HR PRN Administration elevated blood pressure Insulin Human NPH 10 unit 01/27/21 08:00 01/28/21 09:27 Insulin Nph, Human 100 Unit/1 Ml SUB-Q 10 unit BIDDIAB JOSH Administration Insulin Human Regular 0 units 01/27/21 07:30 01/28/21 07:30 Insulin Regular, Human 100 Units/1 Ml SUB-Q 2 units AC JOSH Administration Protocol Linagliptin 5 mg 01/25/21 20:00 01/28/21 09:28 Linagliptin 5 Mg Tab PO 5 mg QDAY JOSH Administration Lisinopril 10 mg 01/26/21 10:00 01/28/21 09:28 Lisinopril 10 Mg Tab PO 10 mg DAILY JOSH Administration Morphine Sulfate 4 mg 01/24/21 11:47 Morphine 4 Mg/1 Ml Inj IV Q4H PRN Pain , Severe (7-10) Ondansetron HCl 4 mg 01/24/21 11:47 Ondansetron 4 Mg/2 Ml Inj IV Q8H PRN Nausea And Vomiting Pravastatin Sodium 40 mg 01/25/21 22:00 01/27/21 22:37 Pravastatin 40 Mg Tab PO 40 mg QHS JOSH Administration Sevelamer Carbonate 800 mg 01/25/21 20:00 01/28/21 08:00 Sevelamer Carbonate 800 Mg Tab PO 800 mg TIDWM JOSH Administration Sodium Chloride 10 ml 01/24/21 22:00 01/28/21 09:29 Sodium Chloride 0.9% 10 Ml Flush Syringe IV 10 ml BID JOSH Administration Sodium Chloride 10 ml 01/24/21 11:47 Sodium Chloride 0.9% 10 Ml Flush Syringe IV PRN PRN LINE FLUSH
--- NOTE | 2021-01-28 14:35 | Progress Note ---
Assessment and Plan Assessment and plan: #Presumed metabolic encephalopathy #Possible chronic dementia -Etiology unknown however differential includes infection, hypoglycemia, worsening dementia, electrolyte derangements, etc. -Blood cultures and urinalysis ordered for evaluation of infection; status post cefepime and vancomycin in ED -We will contact family in order to gather more information about patient's baseline #COVID-19 pneumonia #Acute hypoxic respiratory failure-improving -Currently on 1L nasal cannula; wean oxygen as tolerated -Covid PCR positive on 01/24/2021 -Unaware of patient's vaccination status -Continue isolation protocol per COVID-19 results -D-dimer 742, ferritin 1968, LDH 326, CRP 17; will trend COVID-19 inflammatory markers every 2 to 3 days -Consulting infectious disease; appreciate recs -Continue IV dexamethasone 40 mg daily for total of 10 days; not a candidate for remdesivir given renal function #Hyponatremia-resolved -Na 134 -We will continue to monitor; consider obtaining urine electrolytes if sodium continues to drop #ESRD -Receives hemodialysis on TTS schedule via left upper extremity fistula -Patient admits to missing last 2 sessions but could not provide clear information as to why. She hinted at whether being the issue -Nephrology consulted in ED; appreciate recs -Status post hemodialysis on 01/24/2021 -We will continue to monitor; renally dose medications and avoid nephrotoxic drugs #Insulin-dependent type 2 diabetes mellitus -Adjusted insulin regimen to NPH 10 units twice daily with moderate SSI due to worsening hyperglycemia. Blood sugar goal of 140-180 -Worsening hyperglycemia likely secondary to steroid administration -If blood sugars remain uncontrolled we will increase NPH to 15 units twice daily with moderate SSI -We will continue to monitor #Hypoglycemia-resolved -Unsure of etiology (over administration of insulin versus lack of p.o. intake) -Corrected in the ED -We will continue to monitor #DVT prophylaxis -Transitioned to Eliquis 2.5 mg twice daily due to D-dimer being >3 in the setting of Covid #Discharge planning -Patient was accepted at [facility] per most recent note by case management -Planning for possible discharge on 01/29/2021 Disposition Plan: Pending transfer to retirement/assisted living facility Total Time Spent with Patient (Minutes): 30 min - Patient Problems (1) Acute metabolic encephalopathy Current Visit: Yes Status: Acute (2) ESRD needing dialysis Current Visit: Yes Status: Chronic (3) Hypoglycemia Current Visit: Yes Status: Acute (4) Dementia Current Visit: Yes Status: Chronic Qualifiers: Dementia type: unspecified type Dementia behavioral disturbance: without behavioral disturbance Qualified Code(s): F03.90 - Unspecified dementia without behavioral disturbance History Interval history: No acute events overnight Hospitalist Physical - Constitutional Vitals: Temp Pulse Resp BP Pulse Ox 102.3 F H 85 18 156/65 99 01/28/21 05:01 01/28/21 05:01 01/28/21 05:01 01/28/21 05:01 01/28/21 05:01 General appearance: Present: no acute distress, well-nourished - EENT Eyes: Present: PERRL, EOM intact ENT: hearing intact, clear oral mucosa, edentulous - Neck Neck: Present: supple, normal ROM - Respiratory Respiratory effort: normal Respiratory: bilateral: diminished, negative: CTA, rales, rhonchi, wheezing Details: Currently on 1 L nasal cannula - Cardiovascular Rhythm: regular Heart Sounds: Present: S1 & S2 - Extremities Extremities: no ischemia, pulses intact, pulses symmetrical, No edema, normal temperature, normal color Extremity abnormal: other (AV fistula in left upper) Peripheral Pulses: within normal limits - Abdominal General gastrointestinal: soft, non-tender, non-distended, normal bowel sounds - Integumentary Integumentary: Present: clear, warm, dry - Psychiatric Psychiatric: cooperative, other (Very somnolent yet arousable) - Allied Health Allied health notes reviewed: nursing HEART Score - HEART Score EKG: Normal Age: > 65 Risk factors: 1-2 risk factors Troponin: 1-3x normal limit - Critical Actions Critical Actions: 4-6 pts:12-16.6% risk of adverse cardiac event. Should be admitted Results - Labs CBC & Chem 7: 01/28/21 04:38 01/28/21 04:38 Labs: Laboratory Last Values WBC 9.9 K/mm3 (4.5-11.0) 01/28/21 04:38 RBC 2.67 M/mm3 (3.65-5.03) L 01/28/21 04:38 Hgb 8.0 gm/dl (10.1-14.3) L 01/28/21 04:38 Hct 24.0 % (30.3-42.9) L 01/28/21 04:38 MCV 90 fl (79-97) 01/28/21 04:38 MCH 30 pg (28-32) 01/28/21 04:38 MCHC 33 % (30-34) 01/28/21 04:38 RDW 20.5 % (13.2-15.2) H 01/28/21 04:38 Plt Count 375 K/mm3 (140-440) 01/28/21 04:38 Add Manual Diff Complete 01/28/21 04:38 Total Counted 100 01/28/21 04:38 Seg Neuts % (Manual) 74.0 % (40.0-70.0) H 01/28/21 04:38 Band Neutrophils % 16.0 % 01/28/21 04:38 Lymphocytes % (Manual) 6.0 % (13.4-35.0) L 01/28/21 04:38 Reactive Lymphs % (Man) 3.0 % 01/25/21 06:16 Monocytes % (Manual) 3.0 % (0.0-7.3) 01/26/21 07:29 Eosinophils % (Manual) 1.0 % (0.0-4.3) 01/28/21 04:38 Metamyelocytes % 1.0 % 01/28/21 04:38 Myelocytes % 3.0 % 01/28/21 04:38 Nucleated RBC % Not Reportable 01/28/21 04:38 Seg Neutrophils # Man 7.3 K/mm3 (1.8-7.7) 01/28/21 04:38 Band Neutrophils # 1.6 K/mm3 01/28/21 04:38 Lymphocytes # (Manual) 0.6 K/mm3 (1.2-5.4) L 01/28/21 04:38 Abs React Lymphs (Man) 0.0 K/mm3 01/28/21 04:38 Monocytes # (Manual) 0.0 K/mm3 (0.0-0.8) 01/28/21 04:38 Eosinophils # (Manual) 0.1 K/mm3 (0.0-0.4) 01/28/21 04:38 Basophils # (Manual) 0.0 K/mm3 (0.0-0.1) 01/28/21 04:38 Metamyelocytes # 0.0 K/mm3 01/28/21 04:38 Myelocytes # 0.3 K/mm3 01/28/21 04:38 Promyelocytes # 0.0 K/mm3 01/28/21 04:38 Blast Cells # 0.0 K/mm3 01/28/21 04:38 WBC Morphology Not Reportable 01/28/21 04:38 Hypersegmented Neuts Not Reportable 01/28/21 04:38 Hyposegmented Neuts Not Reportable 01/28/21 04:38 Hypogranular Neuts Not Reportable 01/28/21 04:38 Smudge Cells Not Reportable 01/28/21 04:38 Toxic Granulation Not Reportable 01/28/21 04:38 Toxic Vacuolation Not Reportable 01/28/21 04:38 Dohle Bodies Not Reportable 01/28/21 04:38 Pelger-Huet Anomaly Not Reportable 01/28/21 04:38 Nelson Rods Not Reportable 01/28/21 04:38 Platelet Estimate Consistent w auto 01/28/21 04:38 Clumped Platelets Not Reportable 01/28/21 04:38 Plt Clumps, EDTA Not Reportable 01/28/21 04:38 Large Platelets Not Reportable 01/28/21 04:38 Giant Platelets Not Reportable 01/28/21 04:38 Platelet Satelliting Not Reportable 01/28/21 04:38 Plt Morphology Comment Not Reportable 01/28/21 04:38 RBC Morphology Not Reportable 01/28/21 04:38 Dimorphic RBCs Not Reportable 01/28/21 04:38 Polychromasia Not Reportable 01/28/21 04:38 Hypochromasia Not Reportable 01/28/21 04:38 Poikilocytosis Not Reportable 01/28/21 04:38 Anisocytosis Not Reportable 01/28/21 04:38 Microcytosis Not Reportable 01/28/21 04:38 Macrocytosis Not Reportable 01/28/21 04:38 Spherocytes Not Reportable 01/28/21 04:38 Pappenheimer Bodies Not Reportable 01/28/21 04:38 Sickle Cells Not Reportable 01/28/21 04:38 Target Cells Not Reportable 01/28/21 04:38 Tear Drop Cells Not Reportable 01/28/21 04:38 Ovalocytes Not Reportable 01/28/21 04:38 Helmet Cells Not Reportable 01/28/21 04:38 [place] Bodies Not Reportable 01/28/21 04:38 [place] Rings Not Reportable 01/28/21 04:38 [place] Cells Not Reportable 01/28/21 04:38 Bite Cells Not Reportable 01/28/21 04:38 Crenated Cell Not Reportable 01/28/21 04:38 Elliptocytes Not Reportable 01/28/21 04:38 Acanthocytes (Spur) Not Reportable 01/28/21 04:38 Rouleaux Not Reportable 01/28/21 04:38 Hemoglobin C Crystals Not Reportable 01/28/21 04:38 Schistocytes Not Reportable 01/28/21 04:38 Malaria parasites Not Reportable 01/28/21 04:38 [place] Bodies Not Reportable 01/28/21 04:38 Hem Pathologist Commnt No 01/28/21 04:38 PT 14.1 Sec. (12.2-14.9) 01/26/21 07:29 INR 1.03 (0.87-1.13) 01/26/21 07:29 APTT 68.9 Sec. (24.2-36.6) H* 01/26/21 07:29 D-Dimer 1368.50 ng/mlDDU (0-234) H 01/26/21 07:29 Sodium 134 mmol/L (137-145) L 01/28/21 04:38 Potassium 3.6 mmol/L (3.6-5.0) D 01/28/21 04:38 Chloride 90.5 mmol/L (98-107) L 01/28/21 04:38 Carbon Dioxide 30 mmol/L (22-30) 01/28/21 04:38 Anion Gap 17 mmol/L 01/28/21 04:38 BUN 37 mg/dL (7-17) H 01/28/21 04:38 Creatinine 5.7 mg/dL (0.6-1.2) H 01/28/21 04:38 Estimated GFR 9 ml/min 01/28/21 04:38 BUN/Creatinine Ratio 6 % 01/28/21 04:38 Glucose 149 mg/dL (65-100) H 01/28/21 04:38 POC Glucose 212 mg/dL (70-105) H 01/28/21 10:35 Calcium 9.5 mg/dL (8.4-10.2) 01/28/21 04:38 Phosphorus 4.20 mg/dL (2.5-4.5) 01/28/21 04:38 Magnesium 1.80 mg/dL (1.7-2.3) 01/28/21 04:38 Ferritin 2000.0 ng/mL (10.0-200.0) H 01/26/21 07:29 Total Bilirubin 0.40 mg/dL (0.1-1.2) 01/24/21 07:01 AST 16 units/L (5-40) 01/24/21 07:01 ALT 10 units/L (7-56) 01/24/21 07:01 Alkaline Phosphatase 74 units/L (35-129) 01/24/21 07:01 Lactate Dehydrogenase 233 units/L (91-180) H 01/26/21 07:29 C-Reactive Protein 26.60 mg/dL (0.00-1.30) H 01/26/21 07:29 Total Protein 7.2 g/dL (6.3-8.2) 01/24/21 07:01 Albumin 3.4 g/dL (3.9-5) L 01/24/21 07:01 Albumin/Globulin Ratio 0.9 % 01/24/21 07:01 Procalcitonin 3.90 ng/mL (<0.15) 01/24/21 08:18 Coronavirus (PCR) Positive (Negative) A 01/24/21 Unknown Hepatitis A IgM Ab Non-reactive (NonReactive) 01/24/21 09:38 Hep Bs Antigen Nonreactive (Negative) 01/24/21 09:38 Hep B Core IgM Ab Non-reactive (NonReactive) 01/24/21 09:38 Hepatitis C Antibody Non-reactive (NonReactive) 01/24/21 09:38 Microbiology: Microbiology 01/24/21 08:18 Peripheral/Venous Blood Culture - Preliminary NO GROWTH AFTER 4 DAYS 01/24/21 08:18 Peripheral/Venous Blood Culture - Preliminary NO GROWTH AFTER 4 DAYS [place]/IV: Voiding Method Incontinent Active Medications - Current Medications Current Medications: Generic Name Dose Route Start Last Admin Trade Name Freq PRN Reason Stop Dose Admin Acetaminophen 650 mg 01/24/21 11:47 01/28/21 05:34 Acetaminophen 325 Mg Tab PO 650 mg Q4H PRN Administration Pain MILD(1-3)/Fever >100.5/MARTINEZ Hydrocodone Bitart/Acetaminophen 2 each 01/24/21 11:47 01/28/21 05:40 Hydrocodone/Acetaminophen 5-325 Mg Tab PO 2 each Q6H PRN Administration Pain, Moderate (4-6) Amlodipine Besylate 10 mg 01/25/21 19:00 01/28/21 09:28 Amlodipine 10 Mg Tab PO 10 mg DAILY JOSH Administration Apixaban 5 mg 01/26/21 10:00 01/28/21 09:28 Apixaban 5 Mg Tab PO 5 mg Q12HR JOSH Administration Protocol Atenolol 25 mg 01/25/21 20:00 01/28/21 09:28 Atenolol 25 Mg Tab PO 25 mg DAILY JOSH Administration Dexamethasone 6 mg 01/26/21 10:00 01/28/21 09:27 Dexamethasone 4 Mg/Ml Vial IV 02/04/21 10:00 6 mg DAILY JOSH Administration Dextrose 50 ml 01/27/21 07:06 Dextrose 50% In Water (25gm) 50 Ml Syringe IV Q30MIN PRN Hypoglycemia Protocol Hydralazine HCl 10 mg 01/24/21 22:30 01/26/21 06:25 Hydralazine 20 Mg/1 Ml Inj IV 10 mg Q6HR PRN Administration elevated blood pressure Insulin Human NPH 10 unit 01/27/21 08:00 01/28/21 09:27 Insulin Nph, Human 100 Unit/1 Ml SUB-Q 10 unit BIDDIAB JOSH Administration Insulin Human Regular 0 units 01/27/21 07:30 01/28/21 07:30 Insulin Regular, Human 100 Units/1 Ml SUB-Q 2 units AC JOSH Administration Protocol Linagliptin 5 mg 01/25/21 20:00 01/28/21 09:28 Linagliptin 5 Mg Tab PO 5 mg QDAY JOSH Administration Lisinopril 10 mg 01/26/21 10:00 01/28/21 09:28 Lisinopril 10 Mg Tab PO 10 mg DAILY JOSH Administration Morphine Sulfate 4 mg 01/24/21 11:47 Morphine 4 Mg/1 Ml Inj IV Q4H PRN Pain , Severe (7-10) Ondansetron HCl 4 mg 01/24/21 11:47 Ondansetron 4 Mg/2 Ml Inj IV Q8H PRN Nausea And Vomiting Pravastatin Sodium 40 mg 01/25/21 22:00 01/27/21 22:37 Pravastatin 40 Mg Tab PO 40 mg QHS JOSH Administration Sevelamer Carbonate 800 mg 01/25/21 20:00 01/28/21 08:00 Sevelamer Carbonate 800 Mg Tab PO 800 mg TIDWM JOSH Administration Sodium Chloride 10 ml 01/24/21 22:00 01/28/21 09:29 Sodium Chloride 0.9% 10 Ml Flush Syringe IV 10 ml BID JOSH Administration Sodium Chloride 10 ml 01/24/21 11:47 Sodium Chloride 0.9% 10 Ml Flush Syringe IV PRN PRN LINE FLUSH
[2021-01-28] MEDS: PRAVASTATIN 40 MG TAB PO SCH (22:13)
[2021-01-29 06:19] LABS: Calcium 9.6 mg/dL (8.4-10.2)
[2021-01-29 06:28] LABS: Hematocrit 21.1 % (30.3-42.9); Mean Corpuscular HGB Conc 33 % (30-34); Mean Corpuscular Volume 89 fl (79-97); Platelet Count 410 K/mm3 (140-440); Red Blood Count 2.37 M/mm3 (3.65-5.03)
[2021-01-29 06:43] LABS: Red Cell Distribution Width 20.5 % (13.2-15.2)
[2021-01-29] MEDS: INSULIN LISPRO 100 UNIT/ML SUB-Q SCH ×4 (07:30→21:27)
[2021-01-29] MEDS: INSULIN NPH, HUMAN 100 UNIT/1 ML SUB-Q SCH ×2 (08:00→17:00)
[2021-01-29] MEDS: LISINOPRIL 10 MG TAB PO SCH (09:33)
[2021-01-29] MEDS: amLODIPine 10 MG TAB PO SCH (09:33)
[2021-01-29] MEDS: LINAGLIPTIN 5 MG TAB PO SCH (09:33)
[2021-01-29] MEDS: SEVELAMER CARBONATE 800 MG TAB PO SCH ×3 (09:33→17:30)
[2021-01-29] MEDS: dexAMETHasone 4 MG/ML VIAL IV SCH (09:33)
[2021-01-29] MEDS: APIXABAN 5 MG TAB PO SCH ×2 (09:34→21:27)
--- NOTE | 2021-01-29 10:29 | Progress Note ---
Assessment and Plan Assessment Altered mental status COVID Infection Pneumonia ESRD on Hemodialysis Hypertension Plan Hemodialysis tomorrow for UF and clearance Fluid restriction of 1 liter per day Strict I&O's daily Obtain daily weights Renally dose medications Assess dialysis needs daily Plan of care reviewed by Dr. Woodruff Subjective Date of service: 01/29/21 Principal diagnosis: ESRD on HD Interval history: Patient on isolation for COVID-19 infection Objective - Vital Signs Vital signs: Vital Signs - 12hr 01/28/21 01/29/21 01/29/21 22:49 05:54 09:45 Temperature 97.9 F 98.1 F Pulse Rate 69 64 Respiratory 20 20 Rate Blood Pressure 176/75 139/57 O2 Sat by Pulse 99 99 94 Oximetry - Lab 01/29/21 04:55 01/29/21 04:55 Most recent lab results Calcium 9.6 mg/dL (8.4-10.2) 01/29/21 04:55 Phosphorus 6.10 mg/dL (2.5-4.5) H D 01/29/21 04:55 Magnesium 2.40 mg/dL (1.7-2.3) H 01/29/21 04:55 Medications & Allergies - Medications Allergies/Adverse Reactions: Allergies Iodinated Contrast Media [Iodinated Contrast- Oral and IV Dye] Allergy (Verified 12/29/17 17:31) Itching latex Allergy (Verified 12/29/17 17:31) Itching Home Medications: Home Medications Medication Instructions Recorded Confirmed Last Taken Type Insulin Aspart (Nf) [NovoLOG 1 unit SUB-Q TID 12/29/17 01/25/21 01/01/18 History Flexpen] Insulin Glargine,Hum.rec.anlog 8 units SQ QHS 12/29/17 01/25/21 01/01/18 History [Lantus] Apixaban [Eliquis] 5 mg PO Q12HR 30 Days tablet 01/28/21 Unknown Rx Linagliptin [Tradjenta] 5 mg PO QDAY #90 01/28/21 Unknown Rx Pravastatin [Pravachol] 40 mg PO QHS #90 tablet 01/28/21 Unknown Rx Sevelamer Carbonate [Renvela] 800 mg PO TIDWM #90 tablet 01/28/21 Unknown Rx amLODIPine 10 mg PO DAILY 90 Days 01/28/21 Unknown Rx atenoloL [Tenormin] 25 mg PO DAILY #90 01/28/21 Unknown Rx lisinopriL [Zestril TAB] 10 mg PO DAILY #90 tablet 01/28/21 Unknown Rx Active Medications: Generic Name Dose Route Start Last Admin Trade Name Freq PRN Reason Stop Dose Admin Acetaminophen 650 mg 01/24/21 11:47 01/28/21 05:34 Acetaminophen 325 Mg Tab PO 650 mg Q4H PRN Administration Pain MILD(1-3)/Fever >100.5/MARTINEZ Hydrocodone Bitart/Acetaminophen 2 each 01/24/21 11:47 01/28/21 22:14 Hydrocodone/Acetaminophen 5-325 Mg Tab PO 2 each Q6H PRN Administration Pain, Moderate (4-6) Amlodipine Besylate 10 mg 01/25/21 19:00 01/29/21 09:33 Amlodipine 10 Mg Tab PO 10 mg DAILY JOSH Administration Apixaban 5 mg 01/26/21 10:00 01/29/21 09:34 Apixaban 5 Mg Tab PO 5 mg Q12HR JOSH Administration Protocol Atenolol 25 mg 01/25/21 20:00 01/28/21 09:28 Atenolol 25 Mg Tab PO 25 mg DAILY JOSH Administration Dexamethasone 6 mg 01/26/21 10:00 01/29/21 09:33 Dexamethasone 4 Mg/Ml Vial IV 02/04/21 10:00 6 mg DAILY JOSH Administration Dextrose 50 ml 01/27/21 07:06 Dextrose 50% In Water (25gm) 50 Ml Syringe IV Q30MIN PRN Hypoglycemia Protocol Hydralazine HCl 10 mg 01/24/21 22:30 01/26/21 06:25 Hydralazine 20 Mg/1 Ml Inj IV 10 mg Q6HR PRN Administration elevated blood pressure Insulin Human Lispro 0 unit 01/29/21 07:30 01/29/21 07:30 Insulin Lispro 100 Unit/Ml SUB-Q 4 unit ACHS JOSH Administration Protocol Insulin Human NPH 10 unit 01/27/21 08:00 01/29/21 08:00 Insulin Nph, Human 100 Unit/1 Ml SUB-Q 10 unit BIDDIAB JOSH Administration Linagliptin 5 mg 01/25/21 20:00 01/29/21 09:33 Linagliptin 5 Mg Tab PO 5 mg QDAY JOSH Administration Lisinopril 10 mg 01/26/21 10:00 01/29/21 09:33 Lisinopril 10 Mg Tab PO 10 mg DAILY JOSH Administration Morphine Sulfate 4 mg 01/24/21 11:47 Morphine 4 Mg/1 Ml Inj IV Q4H PRN Pain , Severe (7-10) Ondansetron HCl 4 mg 01/24/21 11:47 Ondansetron 4 Mg/2 Ml Inj IV Q8H PRN Nausea And Vomiting Pravastatin Sodium 40 mg 01/25/21 22:00 01/28/21 22:13 Pravastatin 40 Mg Tab PO 40 mg QHS JOSH Administration Sevelamer Carbonate 800 mg 01/25/21 20:00 01/29/21 09:33 Sevelamer Carbonate 800 Mg Tab PO 800 mg TIDWM JOSH Administration Sodium Chloride 10 ml 01/24/21 22:00 01/29/21 09:34 Sodium Chloride 0.9% 10 Ml Flush Syringe IV 10 ml BID JOSH Administration Sodium Chloride 10 ml 01/24/21 11:47 Sodium Chloride 0.9% 10 Ml Flush Syringe IV PRN PRN LINE FLUSH
--- NOTE | 2021-01-29 12:04 | Progress Note ---
Assessment and Plan Cultures: SARS CoV2 PCR: Positive 01/24/2021 blood culture: No growth A/P: 70-year-old female with ESRD on HD, dementia, insulin-dependent diabetes, hyperlipidemia admitted with altered mental status: #Bilateral pneumonia: Secondary to COVID-19. Labs revealed normal WBC, D-dimer 742, creatinine 7.8, ferritin 1968, CRP 17.8, procalcitonin 3.9. Procalcitonin elevation probably from renal failure. Updated labs 01/26/2021 Ferritin 2000, CRP 26.6, D-dimer 1368 #Acute hypoxic respiratory failure: on nasal cannula. #ESRD on HD: Renally adjust antibiotics. #Acute encephalopathy: Possibly metabolic. Recs: Continue steroids x 10 days, on decadron Not a candidate for remdesivir due to renal failure prophylactic anticoagulation based on d-dimer per hospital protocol trend d-dimer, CRP every 2-3 days Bill Jiménez MD, FACP [facility] O: [phone] F: [phone] Subjective Date of service: 01/29/21 Principal diagnosis: ESRD on HD Interval history: Fever yesterday morning, afebrile since then. Remains on oxygen. Objective - Exam Narrative Exam: Physical Exam (reviewed in chart to minimize risk of transmission) Constitutional: deferred Head, Ears, Nose: deferred Eyes: deferred Neck: deferred Oral: deferred Cardiovascular: deferred Respiratory: deferred GI: deferred Musculoskeletal: deferred Skin: deferred Hem/Lymphatic: deferred Psych: deferred Neurological: deferred - Constitutional Vitals: Vital Signs Temp Pulse Resp BP Pulse Ox 98.1 F 64 20 139/57 97 01/29/21 05:54 01/29/21 05:54 01/29/21 05:54 01/29/21 05:54 01/29/21 10:00 Temperature -Last 24 Hours Temperature 98.1 F Temperature 97.9 F Temperature 98.4 F - Labs CBC & Chem 7: 01/29/21 04:55 01/29/21 04:55 Labs: Abnormal lab results 01/28/21 01/28/21 01/29/21 Range/Units 15:50 21:49 04:55 RBC 2.37 L (3.65-5.03) M/mm3 Hgb 7.0 L (10.1-14.3) gm/dl Hct 21.1 L (30.3-42.9) % RDW 20.5 H (13.2-15.2) % Sodium (137-145) mmol/L Chloride (98-107) mmol/L Carbon Dioxide (22-30) mmol/L BUN (7-17) mg/dL Creatinine (0.6-1.2) mg/dL Glucose (65-100) mg/dL POC Glucose 451 H 394 H (70-105) mg/dL Phosphorus (2.5-4.5) mg/dL Magnesium (1.7-2.3) mg/dL 01/29/21 01/29/21 01/29/21 Range/Units 04:55 08:16 11:07 RBC (3.65-5.03) M/mm3 Hgb (10.1-14.3) gm/dl Hct (30.3-42.9) % RDW (13.2-15.2) % Sodium 134 L (137-145) mmol/L Chloride 89.1 L (98-107) mmol/L Carbon Dioxide 31 H (22-30) mmol/L BUN 63 H (7-17) mg/dL Creatinine 7.8 H (0.6-1.2) mg/dL Glucose 228 H (65-100) mg/dL POC Glucose 266 H 306 H (70-105) mg/dL Phosphorus 6.10 H D (2.5-4.5) mg/dL Magnesium 2.40 H (1.7-2.3) mg/dL
--- NOTE | 2021-01-29 12:22 | Progress Note ---
Assessment and Plan Assessment and plan: #Presumed metabolic encephalopathy-resolved #Possible chronic dementia -Etiology unknown however differential includes infection, hypoglycemia, worsening dementia, electrolyte derangements, etc. -Blood cultures and urinalysis ordered for evaluation of infection; status post cefepime and vancomycin in ED -We will contact family in order to gather more information about patient's baseline #COVID-19 pneumonia #Acute hypoxic respiratory failure-resolved -Currently on 1L nasal cannula; wean oxygen as tolerated -Covid PCR positive on 01/24/2021 -Unaware of patient's vaccination status -Continue isolation protocol per COVID-19 results -D-dimer 742, ferritin 1968, LDH 326, CRP 17; will trend COVID-19 inflammatory markers every 2 to 3 days -Consulting infectious disease; appreciate recs -Continue IV dexamethasone 40 mg daily for total of 10 days; not a candidate for remdesivir given renal function #Hyponatremia-resolved -Na 134 -We will continue to monitor; consider obtaining urine electrolytes if sodium continues to drop #ESRD -Receives hemodialysis on TTS schedule via left upper extremity fistula -Patient admits to missing last 2 sessions but could not provide clear information as to why. She hinted at whether being the issue -Nephrology consulted in ED; appreciate recs -Status post hemodialysis on 01/24/2021 -We will continue to monitor; renally dose medications and avoid nephrotoxic d rugs #Insulin-dependent type 2 diabetes mellitus -Adjusted insulin regimen to NPH 10 units twice daily with moderate SSI due to worsening hyperglycemia. Blood sugar goal of 140-180 -Worsening hyperglycemia likely secondary to steroid administration -If blood sugars remain uncontrolled we will increase NPH to 15 units twice daily with moderate SSI -We will continue to monitor #Hypoglycemia-resolved -Unsure of etiology (over administration of insulin versus lack of p.o. intake) -Corrected in the ED -We will continue to monitor #DVT prophylaxis -Transitioned to Eliquis 2.5 mg twice daily due to D-dimer being >3 in the setting of Covid #Discharge planning -Patient was accepted at [facility] per most recent note by case management; however, bed will not be available until 02/01/2021 -Patient will receive hemodialysis on 01/30/2021 and will be discharged home the same day with her daughters. Afterwards the patient can present at [facility] residential. Disposition Plan: Pending discharge home on 01/30/2021 Total Time Spent with Patient (Minutes): 30 - Patient Problems (1) Acute metabolic encephalopathy Current Visit: Yes Status: Acute (2) ESRD needing dialysis Current Visit: Yes Status: Chronic (3) Hypoglycemia Current Visit: Yes Status: Acute (4) Dementia Current Visit: Yes Status: Chronic Qualifiers: Dementia type: unspecified type Dementia behavioral disturbance: without behavioral disturbance Qualified Code(s): F03.90 - Unspecified dementia without behavioral disturbance History Interval history: No acute events overnight. Hospitalist Physical - Constitutional Vitals: Temp Pulse Resp BP Pulse Ox 98.1 F 64 20 139/57 97 01/29/21 05:54 01/29/21 05:54 01/29/21 05:54 01/29/21 05:54 01/29/21 10:00 General appearance: Present: no acute distress, well-nourished - EENT Eyes: Present: PERRL, EOM intact ENT: hearing intact, clear oral mucosa, edentulous - Neck Neck: Present: supple, normal ROM - Respiratory Respiratory effort: normal - Cardiovascular Rhythm: regular Heart Sounds: Present: S1 & S2 - Extremities Extremities: no ischemia, pulses intact, pulses symmetrical, No edema, normal temperature, normal color Extremity abnormal: other (AV fistula in left upper extremity with palpable thrill) Peripheral Pulses: within normal limits - Abdominal General gastrointestinal: soft, non-tender, non-distended, normal bowel sounds - Integumentary Integumentary: Present: clear, warm, dry - Psychiatric Psychiatric: appropriate mood/affect, intact judgment & insight, memory intact, cooperative - Neurologic Neurologic: CNII-XII intact - Allied Health Allied health notes reviewed: nursing HEART Score - HEART Score EKG: Normal Age: > 65 Risk factors: 1-2 risk factors Troponin: 1-3x normal limit - Critical Actions Critical Actions: 4-6 pts:12-16.6% risk of adverse cardiac event. Should be admitted Results - Labs CBC & Chem 7: 01/29/21 04:55 01/29/21 04:55 Labs: Laboratory Last Values WBC 9.0 K/mm3 (4.5-11.0) 01/29/21 04:55 RBC 2.37 M/mm3 (3.65-5.03) L 01/29/21 04:55 Hgb 7.0 gm/dl (10.1-14.3) L 01/29/21 04:55 Hct 21.1 % (30.3-42.9) L 01/29/21 04:55 MCV 89 fl (79-97) 01/29/21 04:55 MCH 30 pg (28-32) 01/29/21 04:55 MCHC 33 % (30-34) 01/29/21 04:55 RDW 20.5 % (13.2-15.2) H 01/29/21 04:55 Plt Count 410 K/mm3 (140-440) 01/29/21 04:55 Add Manual Diff Complete 01/28/21 04:38 Total Counted 100 01/28/21 04:38 Seg Neuts % (Manual) 74.0 % (40.0-70.0) H 01/28/21 04:38 Band Neutrophils % 16.0 % 01/28/21 04:38 Lymphocytes % (Manual) 6.0 % (13.4-35.0) L 01/28/21 04:38 Reactive Lymphs % (Man) 3.0 % 01/25/21 06:16 Monocytes % (Manual) 3.0 % (0.0-7.3) 01/26/21 07:29 Eosinophils % (Manual) 1.0 % (0.0-4.3) 01/28/21 04:38 Metamyelocytes % 1.0 % 01/28/21 04:38 Myelocytes % 3.0 % 01/28/21 04:38 Nucleated RBC % Not Reportable 01/28/21 04:38 Seg Neutrophils # Man 7.3 K/mm3 (1.8-7.7) 01/28/21 04:38 Band Neutrophils # 1.6 K/mm3 01/28/21 04:38 Lymphocytes # (Manual) 0.6 K/mm3 (1.2-5.4) L 01/28/21 04:38 Abs React Lymphs (Man) 0.0 K/mm3 01/28/21 04:38 Monocytes # (Manual) 0.0 K/mm3 (0.0-0.8) 01/28/21 04:38 Eosinophils # (Manual) 0.1 K/mm3 (0.0-0.4) 01/28/21 04:38 Basophils # (Manual) 0.0 K/mm3 (0.0-0.1) 01/28/21 04:38 Metamyelocytes # 0.0 K/mm3 01/28/21 04:38 Myelocytes # 0.3 K/mm3 01/28/21 04:38 Promyelocytes # 0.0 K/mm3 01/28/21 04:38 Blast Cells # 0.0 K/mm3 01/28/21 04:38 WBC Morphology Not Reportable 01/28/21 04:38 Hypersegmented Neuts Not Reportable 01/28/21 04:38 Hyposegmented Neuts Not Reportable 01/28/21 04:38 Hypogranular Neuts Not Reportable 01/28/21 04:38 Smudge Cells Not Reportable 01/28/21 04:38 Toxic Granulation Not Reportable 01/28/21 04:38 Toxic Vacuolation Not Reportable 01/28/21 04:38 Dohle Bodies Not Reportable 01/28/21 04:38 Pelger-Huet Anomaly Not Reportable 01/28/21 04:38 Nelson Rods Not Reportable 01/28/21 04:38 Platelet Estimate Consistent w auto 01/28/21 04:38 Clumped Platelets Not Reportable 01/28/21 04:38 Plt Clumps, EDTA Not Reportable 01/28/21 04:38 Large Platelets Not Reportable 01/28/21 04:38 Giant Platelets Not Reportable 01/28/21 04:38 Platelet Satelliting Not Reportable 01/28/21 04:38 Plt Morphology Comment Not Reportable 01/28/21 04:38 RBC Morphology Not Reportable 01/28/21 04:38 Dimorphic RBCs Not Reportable 01/28/21 04:38 Polychromasia Not Reportable 01/28/21 04:38 Hypochromasia Not Reportable 01/28/21 04:38 Poikilocytosis Not Reportable 01/28/21 04:38 Anisocytosis Not Reportable 01/28/21 04:38 Microcytosis Not Reportable 01/28/21 04:38 Macrocytosis Not Reportable 01/28/21 04:38 Spherocytes Not Reportable 01/28/21 04:38 Pappenheimer Bodies Not Reportable 01/28/21 04:38 Sickle Cells Not Reportable 01/28/21 04:38 Target Cells Not Reportable 01/28/21 04:38 Tear Drop Cells Not Reportable 01/28/21 04:38 Ovalocytes Not Reportable 01/28/21 04:38 Helmet Cells Not Reportable 01/28/21 04:38 [place] Bodies Not Reportable 01/28/21 04:38 [place] Rings Not Reportable 01/28/21 04:38 [place] Cells Not Reportable 01/28/21 04:38 Bite Cells Not Reportable 01/28/21 04:38 Crenated Cell Not Reportable 01/28/21 04:38 Elliptocytes Not Reportable 01/28/21 04:38 Acanthocytes (Spur) Not Reportable 01/28/21 04:38 Rouleaux Not Reportable 01/28/21 04:38 Hemoglobin C Crystals Not Reportable 01/28/21 04:38 Schistocytes Not Reportable 01/28/21 04:38 Malaria parasites Not Reportable 01/28/21 04:38 [place] Bodies Not Reportable 01/28/21 04:38 Hem Pathologist Commnt No 01/28/21 04:38 PT 14.1 Sec. (12.2-14.9) 01/26/21 07:29 INR 1.03 (0.87-1.13) 01/26/21 07:29 APTT 68.9 Sec. (24.2-36.6) H* 01/26/21 07:29 D-Dimer 1368.50 ng/mlDDU (0-234) H 01/26/21 07:29 Sodium 134 mmol/L (137-145) L 01/29/21 04:55 Potassium 4.2 mmol/L (3.6-5.0) 01/29/21 04:55 Chloride 89.1 mmol/L (98-107) L 01/29/21 04:55 Carbon Dioxide 31 mmol/L (22-30) H 01/29/21 04:55 Anion Gap 18 mmol/L 01/29/21 04:55 BUN 63 mg/dL (7-17) H 01/29/21 04:55 Creatinine 7.8 mg/dL (0.6-1.2) H 01/29/21 04:55 Estimated GFR 6 ml/min 01/29/21 04:55 BUN/Creatinine Ratio 8 % 01/29/21 04:55 Glucose 228 mg/dL (65-100) H 01/29/21 04:55 POC Glucose 306 mg/dL (70-105) H 01/29/21 11:07 Calcium 9.6 mg/dL (8.4-10.2) 01/29/21 04:55 Phosphorus 6.10 mg/dL (2.5-4.5) H D 01/29/21 04:55 Magnesium 2.40 mg/dL (1.7-2.3) H 01/29/21 04:55 Ferritin 2000.0 ng/mL (10.0-200.0) H 01/26/21 07:29 Total Bilirubin 0.40 mg/dL (0.1-1.2) 01/24/21 07:01 AST 16 units/L (5-40) 01/24/21 07:01 ALT 10 units/L (7-56) 01/24/21 07:01 Alkaline Phosphatase 74 units/L (35-129) 01/24/21 07:01 Lactate Dehydrogenase 233 units/L (91-180) H 01/26/21 07:29 C-Reactive Protein 26.60 mg/dL (0.00-1.30) H 01/26/21 07:29 Total Protein 7.2 g/dL (6.3-8.2) 01/24/21 07:01 Albumin 3.4 g/dL (3.9-5) L 01/24/21 07:01 Albumin/Globulin Ratio 0.9 % 01/24/21 07:01 Procalcitonin 3.90 ng/mL (<0.15) 01/24/21 08:18 Coronavirus (PCR) Positive (Negative) A 01/24/21 Unknown Hepatitis A IgM Ab Non-reactive (NonReactive) 01/24/21 09:38 Hep Bs Antigen Nonreactive (Negative) 01/24/21 09:38 Hep B Core IgM Ab Non-reactive (NonReactive) 01/24/21 09:38 Hepatitis C Antibody Non-reactive (NonReactive) 01/24/21 09:38 Microbiology: Microbiology 01/24/21 08:18 Peripheral/Venous Blood Culture - Final NO GROWTH AFTER 5 DAYS 01/24/21 08:18 Peripheral/Venous Blood Culture - Final NO GROWTH AFTER 5 DAYS [place]/IV: Voiding Method Incontinent Active Medications - Current Medications Current Medications: Generic Name Dose Route Start Last Admin Trade Name Freq PRN Reason Stop Dose Admin Acetaminophen 650 mg 01/24/21 11:47 01/28/21 05:34 Acetaminophen 325 Mg Tab PO 650 mg Q4H PRN Administration Pain MILD(1-3)/Fever >100.5/MARTINEZ Hydrocodone Bitart/Acetaminophen 2 each 01/24/21 11:47 01/28/21 22:14 Hydrocodone/Acetaminophen 5-325 Mg Tab PO 2 each Q6H PRN Administration Pain, Moderate (4-6) Amlodipine Besylate 10 mg 01/25/21 19:00 01/29/21 09:33 Amlodipine 10 Mg Tab PO 10 mg DAILY JOSH Administration Apixaban 5 mg 01/26/21 10:00 01/29/21 09:34 Apixaban 5 Mg Tab PO 5 mg Q12HR JOSH Administration Protocol Atenolol 25 mg 01/25/21 20:00 01/28/21 09:28 Atenolol 25 Mg Tab PO 25 mg DAILY JOSH Administration Dexamethasone 6 mg 01/26/21 10:00 01/29/21 09:33 Dexamethasone 4 Mg/Ml Vial IV 02/04/21 10:00 6 mg DAILY JOSH Administration Dextrose 50 ml 01/27/21 07:06 Dextrose 50% In Water (25gm) 50 Ml Syringe IV Q30MIN PRN Hypoglycemia Protocol Hydralazine HCl 10 mg 01/24/21 22:30 01/26/21 06:25 Hydralazine 20 Mg/1 Ml Inj IV 10 mg Q6HR PRN Administration elevated blood pressure Insulin Human Lispro 0 unit 01/29/21 07:30 01/29/21 07:30 Insulin Lispro 100 Unit/Ml SUB-Q 4 unit ACHS JOSH Administration Protocol Insulin Human NPH 10 unit 01/27/21 08:00 01/29/21 08:00 Insulin Nph, Human 100 Unit/1 Ml SUB-Q 10 unit BIDDIAB JOSH Administration Linagliptin 5 mg 01/25/21 20:00 01/29/21 09:33 Linagliptin 5 Mg Tab PO 5 mg QDAY JOSH Administration Lisinopril 10 mg 01/26/21 10:00 01/29/21 09:33 Lisinopril 10 Mg Tab PO 10 mg DAILY JOSH Administration Morphine Sulfate 4 mg 01/24/21 11:47 Morphine 4 Mg/1 Ml Inj IV Q4H PRN Pain , Severe (7-10) Ondansetron HCl 4 mg 01/24/21 11:47 Ondansetron 4 Mg/2 Ml Inj IV Q8H PRN Nausea And Vomiting Pravastatin Sodium 40 mg 01/25/21 22:00 01/28/21 22:13 Pravastatin 40 Mg Tab PO 40 mg QHS JOSH Administration Sevelamer Carbonate 800 mg 01/25/21 20:00 01/29/21 09:33 Sevelamer Carbonate 800 Mg Tab PO 800 mg TIDWM JOSH Administration Sodium Chloride 10 ml 01/24/21 22:00 01/29/21 09:34 Sodium Chloride 0.9% 10 Ml Flush Syringe IV 10 ml BID JOSH Administration Sodium Chloride 10 ml 01/24/21 11:47 Sodium Chloride 0.9% 10 Ml Flush Syringe IV PRN PRN LINE FLUSH
[2021-01-29] MEDS: atenoloL 25 MG TAB PO SCH (12:36)
[2021-01-29 12:45] LABS: Anisocytosis 1+; Hypochromasia 1+; Platelet Estimate Consistent w Auto; Total Cells Counted 100
[2021-01-29] MEDS: PRAVASTATIN 40 MG TAB PO SCH (21:27)
[2021-01-30 06:24] LABS: Hematocrit 21.4 % (30.3-42.9); Hemoglobin 7.3 gm/dl (10.1-14.3); Mean Corpuscular HGB Conc 34 % (30-34); Mean Corpuscular Volume 89 fl (79-97); Platelet Count 511 K/mm3 (140-440)
[2021-01-30 06:26] LABS: Red Cell Distribution Width 20.9 % (13.2-15.2)
[2021-01-30 06:55] LABS: C-Reactive Protein 16.4 mg/dL (0.00-1.30); Calcium 9.2 mg/dL (8.4-10.2)
[2021-01-30] MEDS: INSULIN LISPRO 100 UNIT/ML SUB-Q SCH ×4 (07:30→23:24)
[2021-01-30] MEDS: INSULIN NPH, HUMAN 100 UNIT/1 ML SUB-Q SCH ×2 (08:00→17:00)
[2021-01-30] MEDS: LISINOPRIL 10 MG TAB PO SCH (09:13)
[2021-01-30] MEDS: APIXABAN 5 MG TAB PO SCH ×2 (09:13→23:22)
[2021-01-30] MEDS: amLODIPine 10 MG TAB PO SCH (09:13)
[2021-01-30] MEDS: atenoloL 25 MG TAB PO SCH (09:13)
[2021-01-30] MEDS: dexAMETHasone 4 MG/ML VIAL IV SCH (09:13)
[2021-01-30] MEDS: SEVELAMER CARBONATE 800 MG TAB PO SCH ×3 (09:14→17:26)
[2021-01-30] MEDS: LINAGLIPTIN 5 MG TAB PO SCH (09:14)
[2021-01-30 10:52] LABS: Anisocytosis 1+; Band Neutrophils # (Manual) 0.1 K/mm3; Hypochromasia 1+; Total Cells Counted 100
[2021-01-30 10:53] LABS: Platelet Estimate Consistent w Auto
--- NOTE | 2021-01-30 10:59 | Discharge Summary ---
Providers - Providers Date of Admission: 01/24/21 08:30 Date of discharge: 01/30/21 Attending physician: JOHNATHAN METZGER MD 01/24/21 08:10 Consult to Physician [CONS] Urgent Comment: Consulting Provider: NAE BECK Physician Instructions: Reason For Exam: esrd needing dialysis 01/24/21 15:50 Consult to Physician [CONS] Routine Comment: Consulting Provider: LISA POLANCO Physician Instructions: Reason For Exam: Covid 19 infection 01/25/21 13:15 Physical Therapy Evaluation and Treat [CONS] Stat Comment: Reason For Exam: eval and treat 01/25/21 13:16 Occupational Therapy Evaluate and Treat [CONS] Stat Comment: Reason For Exam: eval and treat Primary care physician: [employer] W[employer]OW TINTER Hospitalization Condition: Stable Disposition: 30 STILL A PATIENT Exam - Physical Exam Narrative exam: GENERAL: Well-developed well-nourished. Sitting on the side of the bed in no acute distress. HEENT: Normocephalic. Atraumatic. NECK: Supple. CHEST/LUNGS: CTAB on room air HEART/CARDIOVASCULAR: RRR. No murmur, rubs or gallops appreciated. ABDOMEN: +BS. NT/ND. SKIN: No rashes noted. NEURO: No focal motor deficit. Follows all commands and is ambulatory. MUSCULOSKELETAL: No joint effusion EXTREMITIES: No cyanosis, cubbing or edema. PSYCH: Cooperative. - Constitutional Vitals: Temp Pulse Resp BP Pulse Ox 97.6 F 71 17 130/76 94 01/30/21 05:18 01/30/21 05:16 01/30/21 05:16 01/30/21 09:13 01/30/21 07:40 Plan Care Plan Goals: Patient to return to SNF tomorrow and will be discharged to Daughter's care today. Continue HD TTS Health Concerns: Return to emergency room if you experience high fevers, chills, chest pain/chest pressure, worsening shortness of breath, confusion, extreme weakness, or bleeding. Follow up with: ANN MARIE BROWN MD [Primary Care Provider] - 3-5 Days Prescriptions: Pravastatin [Pravachol] 40 mg PO QHS #90 tablet amLODIPine 10 mg PO DAILY 90 Days dexAMETHasone [Decadron] 6 mg PO DAILY 5 Days #5 tablet Apixaban [Eliquis] 5 mg PO Q12HR 30 Days tablet Sevelamer Carbonate [Renvela] 800 mg PO TIDWM #90 tablet atenoloL [Tenormin] 25 mg PO DAILY #90 Linagliptin [Tradjenta] 5 mg PO QDAY #90 lisinopriL [Zestril TAB] 10 mg PO DAILY #90 tablet
--- NOTE | 2021-01-30 11:01 | Progress Note ---
Assessment and Plan Altered mental status Pneumonia ESRD on HD HTN HD today for clearance and volume removal will assess dialysis needs daily Strict I&O daily weight renally dose meds Subjective Date of service: 01/30/21 Principal diagnosis: ESRD on HD Interval history: no acute distress Objective - Vital Signs Vital signs: Vital Signs - 12hr 01/29/21 01/30/21 01/30/21 23:12 05:16 05:18 Temperature 98.1 F 97.6 F Pulse Rate 71 71 Respiratory 20 17 Rate Blood Pressure 134/56 128/54 O2 Sat by Pulse 98 97 Oximetry 01/30/21 01/30/21 07:40 09:13 Temperature Pulse Rate Respiratory Rate Blood Pressure 130/76 O2 Sat by Pulse 94 Oximetry - Lab 01/30/21 05:40 01/30/21 05:40 Most recent lab results Calcium 9.2 mg/dL (8.4-10.2) 01/30/21 05:40 Phosphorus 6.10 mg/dL (2.5-4.5) H D 01/29/21 04:55 Magnesium 2.40 mg/dL (1.7-2.3) H 01/29/21 04:55 Medications & Allergies - Medications Allergies/Adverse Reactions: Allergies Iodinated Contrast Media [Iodinated Contrast- Oral and IV Dye] Allergy (Verified 12/29/17 17:31) Itching latex Allergy (Verified 12/29/17 17:31) Itching Home Medications: Home Medications Medication Instructions Recorded Confirmed Last Taken Type Insulin Aspart (Nf) [NovoLOG 1 unit SUB-Q TID 12/29/17 01/25/21 01/01/18 History Flexpen] Insulin Glargine,Hum.rec.anlog 8 units SQ QHS 12/29/17 01/25/21 01/01/18 History [Lantus] Apixaban [Eliquis] 5 mg PO Q12HR 30 Days tablet 01/28/21 Unknown Rx Linagliptin [Tradjenta] 5 mg PO QDAY #90 01/28/21 Unknown Rx Pravastatin [Pravachol] 40 mg PO QHS #90 tablet 01/28/21 Unknown Rx Sevelamer Carbonate [Renvela] 800 mg PO TIDWM #90 tablet 01/28/21 Unknown Rx amLODIPine 10 mg PO DAILY 90 Days 01/28/21 Unknown Rx atenoloL [Tenormin] 25 mg PO DAILY #90 01/28/21 Unknown Rx lisinopriL [Zestril TAB] 10 mg PO DAILY #90 tablet 01/28/21 Unknown Rx dexAMETHasone [Decadron] 6 mg PO DAILY 5 Days #5 tablet 01/30/21 Unknown Rx Active Medications: Generic Name Dose Route Start Last Admin Trade Name Freq PRN Reason Stop Dose Admin Acetaminophen 650 mg 01/24/21 11:47 01/28/21 05:34 Acetaminophen 325 Mg Tab PO 650 mg Q4H PRN Administration Pain MILD(1-3)/Fever >100.5/MARTINEZ Hydrocodone Bitart/Acetaminophen 2 each 01/24/21 11:47 01/28/21 22:14 Hydrocodone/Acetaminophen 5-325 Mg Tab PO 2 each Q6H PRN Administration Pain, Moderate (4-6) Amlodipine Besylate 10 mg 01/25/21 19:00 01/30/21 09:13 Amlodipine 10 Mg Tab PO 10 mg DAILY JOSH Administration Apixaban 5 mg 01/26/21 10:00 01/30/21 09:13 Apixaban 5 Mg Tab PO 5 mg Q12HR JOSH Administration Protocol Atenolol 25 mg 01/25/21 20:00 01/30/21 09:13 Atenolol 25 Mg Tab PO 25 mg DAILY JOSH Administration Dexamethasone 6 mg 01/31/21 10:00 Dexamethasone 4 Mg Tab PO 02/04/21 11:59 DAILY JOSH Dextrose 50 ml 01/27/21 07:06 Dextrose 50% In Water (25gm) 50 Ml Syringe IV Q30MIN PRN Hypoglycemia Protocol Hydralazine HCl 10 mg 01/24/21 22:30 01/26/21 06:25 Hydralazine 20 Mg/1 Ml Inj IV 10 mg Q6HR PRN Administration elevated blood pressure Insulin Human Lispro 0 unit 01/29/21 07:30 01/30/21 07:30 Insulin Lispro 100 Unit/Ml SUB-Q 8 unit ACHS JOSH Administration Protocol Insulin Human NPH 10 unit 01/27/21 08:00 01/30/21 08:00 Insulin Nph, Human 100 Unit/1 Ml SUB-Q 10 unit BIDDIAB JOSH Administration Linagliptin 5 mg 01/25/21 20:00 01/30/21 09:14 Linagliptin 5 Mg Tab PO 5 mg QDAY JOSH Administration Lisinopril 10 mg 01/26/21 10:00 01/30/21 09:13 Lisinopril 10 Mg Tab PO 10 mg DAILY JOSH Administration Morphine Sulfate 4 mg 01/24/21 11:47 Morphine 4 Mg/1 Ml Inj IV Q4H PRN Pain , Severe (7-10) Ondansetron HCl 4 mg 01/24/21 11:47 Ondansetron 4 Mg/2 Ml Inj IV Q8H PRN Nausea And Vomiting Pravastatin Sodium 40 mg 01/25/21 22:00 01/29/21 21:27 Pravastatin 40 Mg Tab PO 40 mg QHS JOSH Administration Sevelamer Carbonate 800 mg 01/25/21 20:00 01/30/21 09:14 Sevelamer Carbonate 800 Mg Tab PO 800 mg TIDWM JOSH Administration Sodium Chloride 10 ml 01/24/21 22:00 01/30/21 09:14 Sodium Chloride 0.9% 10 Ml Flush Syringe IV 10 ml BID JOSH Administration Sodium Chloride 10 ml 01/24/21 11:47 Sodium Chloride 0.9% 10 Ml Flush Syringe IV PRN PRN LINE FLUSH
--- NOTE | 2021-01-30 14:10 | Progress Note ---
Assessment and Plan Cultures: SARS CoV2 PCR: Positive 01/24/2021 blood culture: No growth A/P: 70-year-old female with ESRD on HD, dementia, insulin-dependent diabetes, hyperlipidemia admitted with altered mental status: #Bilateral pneumonia: Secondary to COVID-19. Labs revealed normal WBC, D-dimer 742, creatinine 7.8, ferritin 1968, CRP 17.8, procalcitonin 3.9. Procalcitonin elevation probably from renal failure. Updated labs 01/26/2021 Ferritin 2000, CRP 26.6, D-dimer 1368 #Acute hypoxic respiratory failure: on nasal cannula. #ESRD on HD: Renally adjust antibiotics. #Acute encephalopathy: Possibly metabolic. Recs: Continue steroids x 10 days, on decadron Not a candidate for remdesivir due to renal failure oxygen weaning as tolerated, discharge planning Bill Jiménez MD, FACP [facility] O: [phone] F: [phone] Subjective Date of service: 01/30/21 Principal diagnosis: ESRD on HD Interval history: Afebrile. Stable on oxygen. Objective - Exam Narrative Exam: Physical Exam (reviewed in chart to minimize risk of transmission) Constitutional: deferred Head, Ears, Nose: deferred Eyes: deferred Neck: deferred Oral: deferred Cardiovascular: deferred Respiratory: deferred GI: deferred Musculoskeletal: deferred Skin: deferred Hem/Lymphatic: deferred Psych: deferred Neurological: deferred - Constitutional Vitals: Vital Signs Temp Pulse Resp BP Pulse Ox 98.3 F 71 18 138/54 95 01/30/21 11:06 01/30/21 11:06 01/30/21 11:06 01/30/21 11:06 01/30/21 11:06 Temperature -Last 24 Hours Temperature 98.3 F Temperature 97.6 F Temperature 98.1 F Temperature 97.9 F - Labs CBC & Chem 7: 01/30/21 05:40 01/30/21 05:40 Labs: Abnormal lab results 01/29/21 01/29/21 01/30/21 Range/Units 17:05 21:19 05:40 RBC 2.40 L (3.65-5.03) M/mm3 Hgb 7.3 L (10.1-14.3) gm/dl Hct 21.4 L (30.3-42.9) % RDW 20.9 H (13.2-15.2) % Plt Count 511 H (140-440) K/mm3 Seg Neuts % (Manual) 86.0 H (40.0-70.0) % Lymphocytes % (Manual) 7.0 L (13.4-35.0) % Seg Neutrophils # Man 8.3 H (1.8-7.7) K/mm3 Lymphocytes # (Manual) 0.7 L (1.2-5.4) K/mm3 D-Dimer (0-234) ng/mlDDU Sodium (137-145) mmol/L Chloride (98-107) mmol/L BUN (7-17) mg/dL Creatinine (0.6-1.2) mg/dL Glucose (65-100) mg/dL POC Glucose 391 H 254 H (70-105) mg/dL C-Reactive Protein (0.00-1.30) mg/dL 01/30/21 01/30/21 01/30/21 Range/Units 05:40 05:40 11:04 RBC (3.65-5.03) M/mm3 Hgb (10.1-14.3) gm/dl Hct (30.3-42.9) % RDW (13.2-15.2) % Plt Count (140-440) K/mm3 Seg Neuts % (Manual) (40.0-70.0) % Lymphocytes % (Manual) (13.4-35.0) % Seg Neutrophils # Man (1.8-7.7) K/mm3 Lymphocytes # (Manual) (1.2-5.4) K/mm3 D-Dimer 723.23 H (0-234) ng/mlDDU Sodium 130 L (137-145) mmol/L Chloride 84.3 L (98-107) mmol/L BUN 92 H (7-17) mg/dL Creatinine 9.2 H (0.6-1.2) mg/dL Glucose 355 H (65-100) mg/dL POC Glucose 374 H (70-105) mg/dL C-Reactive Protein 16.40 H (0.00-1.30) mg/dL
[2021-01-30] MEDS: PRAVASTATIN 40 MG TAB PO SCH (23:23)
[2021-01-31 05:26] VITALS: BP 146/56
[2021-01-31] MEDS: INSULIN LISPRO 100 UNIT/ML SUB-Q SCH (09:48)
[2021-01-31] MEDS: INSULIN NPH, HUMAN 100 UNIT/1 ML SUB-Q SCH (09:48)
[2021-01-31] MEDS: APIXABAN 5 MG TAB PO SCH (09:49)
[2021-01-31] MEDS: SEVELAMER CARBONATE 800 MG TAB PO SCH (09:49)
[2021-01-31] MEDS: LINAGLIPTIN 5 MG TAB PO SCH (09:49)
[2021-01-31] MEDS: amLODIPine 10 MG TAB PO SCH (09:50)
[2021-01-31] MEDS: LISINOPRIL 10 MG TAB PO SCH (09:51)
[2021-01-31] MEDS: atenoloL 25 MG TAB PO SCH (09:51)
[2021-01-31] MEDS ORDERED: DEXAMETHASONE 4 MG TAB PO SCH (10:00)
--- NOTE | 2021-01-31 16:32 | Discharge Summary ---
Providers - Providers Date of Admission: 01/24/21 08:30 Date of discharge: 01/31/21 Attending physician: JOHNATHAN METZGER MD 01/24/21 08:10 Consult to Physician [CONS] Urgent Comment: Consulting Provider: NAE BECK Physician Instructions: Reason For Exam: esrd needing dialysis 01/24/21 15:50 Consult to Physician [CONS] Routine Comment: Consulting Provider: LISA POLANCO Physician Instructions: Reason For Exam: Covid 19 infection 01/25/21 13:15 Physical Therapy Evaluation and Treat [CONS] Stat Comment: Reason For Exam: eval and treat 01/25/21 13:16 Occupational Therapy Evaluate and Treat [CONS] Stat Comment: Reason For Exam: eval and treat Primary care physician: [employer] Hospitalization Reason for admission: Altered mental status Condition: Stable Hospital course: 70-year-old female with history of ESRD on hemodialysis, dementia and insulin-dependent diabetes type 2 who presented to the ED on 01/24 with altered mentation. She was hypoglycemic on arrival. Chest x-ray showed possible bilateral opacities concerning for pneumonia. Received 1 dose of cefepime and vancomycin in the ED. Covid PCR was positive. Nephrology was consulted for inpatient dialysis. ID was consulted for comanagement of Covid. She was placed on supplemental oxygen for acute respiratory failure. She was eventually weaned back to room air. She was discharged to family care on 01/31 with plans for the family to take patient to [facility] on 02/01. Disposition: 01 HOME / SELF CARE / HOMELESS Final Discharge Diagnosis (Prints w/discharge instructions): Acute metabolic encephalopathy. COVID-19 pneumonia. Acute hypoxic respiratory failure. ESRD Core Measure Documentation - Palliative Care Palliative Care/ Comfort Measures: Not Applicable - Core Measures Any of the following diagnoses?: none Exam - Physical Exam Narrative exam: GENERAL: Well-developed well-nourished. Lying in bed in no acute distress. HEENT: Normocephalic. Atraumatic. CHEST/LUNGS: CTAB on room air HEART/CARDIOVASCULAR: RRR. No murmur, rubs or gallops appreciated. ABDOMEN: +BS. NT/ND.. EXTREMITIES: No cyanosis, clubbing or edema. PSYCH: Cooperative. - Constitutional Vitals: Temp Pulse Resp BP Pulse Ox 97.3 F L 71 20 146/56 96 01/31/21 05:23 01/31/21 05:23 01/31/21 05:23 01/31/21 05:01/31/21 10:00 Plan Activity: up only with assistance Diet: renal Care Plan Goals: Patient to return to SNF tomorrow and will be discharged to Daughter's care today. Continue HD TTS Health Concerns: Return to emergency room if you experience high fevers, chills, chest pain/chest pressure, worsening shortness of breath, confusion, extreme weakness, or bleeding. Follow up with: PRIMARY CARE, [Primary Care Provider] - 3-5 Days Prescriptions: Pravastatin [Pravachol] 40 mg PO QHS #90 tablet amLODIPine 10 mg PO DAILY 90 Days dexAMETHasone [Decadron] 6 mg PO DAILY 5 Days #5 tablet Apixaban [Eliquis] 5 mg PO Q12HR 30 Days tablet Sevelamer Carbonate [Renvela] 800 mg PO TIDWM #90 tablet atenoloL [Tenormin] 25 mg PO DAILY #90 Linagliptin [Tradjenta] 5 mg PO QDAY #90 lisinopriL [Zestril TAB] 10 mg PO DAILY #90 tablet
--- NOTE | 2021-01-31 16:33 | Event Note ---
Date: 01/30/21 The patient was seen and examined by me on 01/30 with the plan of discharge after hemodialysis session. Per nursing patient was not finished with dialysis until 11 PM that day. She stayed overnight until 01/31 where she could safely be discharged in the care of family.
== END 2021-01-31 10:40 | disposition home health service (06) | DRG 177 ==
LOC: ED 06:18 → 3A 08:30
PROVIDERS: ADMIT Student in an Organized Health Care Education/Training Program; ATTEND Student in an Organized Health Care Education/Training Program
PROC: 5A1D70Z Performance of Urinary Filtration, Intermittent, Less than 6 Hours Per Day (ICD-10-PCS; principal; 2021-01-24)
PROC: 5A1D70Z Performance of Urinary Filtration, Intermittent, Less than 6 Hours Per Day (ICD-10-PCS; 2021-01-25)
PROC: 5A1D70Z Performance of Urinary Filtration, Intermittent, Less than 6 Hours Per Day (ICD-10-PCS; 2021-01-27)
PROC: 5A1D70Z Performance of Urinary Filtration, Intermittent, Less than 6 Hours Per Day (ICD-10-PCS; 2021-01-30)
PROC: 5A1D70Z Performance of Urinary Filtration, Intermittent, Less than 6 Hours Per Day (ICD-10-PCS; 2021-01-31)
DX: U07.1 COVID-19 (principal); N18.6 End stage renal disease; G93.41 Metabolic encephalopathy; J96.01 Acute respiratory failure with hypoxia; J12.82 Pneumonia due to coronavirus disease 2019; E87.1 Hypo-osmolality and hyponatremia; I12.0 Hypertensive chronic kidney disease with stage 5 chronic kidney disease or end stage renal disease; F03.90 Unspecified dementia, unspecified severity, without behavioral disturbance, psychotic disturbance, mood disturbance, and anxiety; Z91.041 Radiographic dye allergy status; Z91.040 Latex allergy status; E11.22 Type 2 diabetes mellitus with diabetic chronic kidney disease; Z99.2 Dependence on renal dialysis; M19.90 Unspecified osteoarthritis, unspecified site; F17.200 Nicotine dependence, unspecified, uncomplicated; Z79.4 Long term (current) use of insulin; Z79.899 Other long term (current) drug therapy; E11.649 Type 2 diabetes mellitus with hypoglycemia without coma; E78.5 Hyperlipidemia, unspecified; Z96.652 Presence of left artificial knee joint
CPT/HCPCS: 36415; 71045; 80048; 80053; 80074; 82728; 82947; 82962; 83615; 83735; 84100; 84145; 85007; 85025; 85379; 85610; 85730; 86140; 87040; 93005; 94760; G0378; J0360; J0692; J1100; J1644; J1815; J3370; J7050; J7512; J8540; U0003